=== PATIENT | male | born 1960 | race Caucasian/White ===

== ENCOUNTER → 2024-05-20 10:51 | Outpatient (REF) | payer MEDICARE, MEDICAID, SELFPAY | LOC: HWRAD 10:51 | PROVIDERS: ATTENDING PHYSICIAN Internal Medicine | DX: E04.1 Nontoxic single thyroid nodule (principal) | CPT/HCPCS: 76536 ==

== ENCOUNTER → 2024-05-30 11:51 | Outpatient (REF) | payer MEDICARE, SELFPAY | LOC: HWRAD 11:51 | PROVIDERS: ATTENDING PHYSICIAN Dentist Oral and Maxillofacial Surgery; FAMILY PHYSICIAN Internal Medicine | DX: K02.63 Dental caries on smooth surface penetrating into pulp (principal) | CPT/HCPCS: 70486 ==

== ENCOUNTER 2025-01-26 09:38 | Emergency (ER) | payer MEDICARE, SELFPAY ==
[2025-01-26 09:47] VITALS: BP 146/99
--- NOTE | 2025-01-26 12:05 | ED.GENMED ---
History of Present Illness
General
Chief Complaint: Skin Problem
Time Seen by Provider: 01/26/25 12:04
History of Present Illness
History of Present Illness:
TIME OF INITIAL ENCOUNTER: 12:05 PM
HPI: The patient comes in from a detention. He has history of autism. There was concern for the possibly of injury or infection at the posterior distal aspect of the left lower extremity. The patient is extremely limited and unreliable
historian. There is no report of fevers.
EXAM:
GENERAL: Appears in no distress, overall appearance consistent with autism
HEENT: Moist oral mucosa
NEUROLOGIC: The patient has evidence of autism, does not reliably follow simple commands
EXTREMITIES: Moves all extremities equally, no tenderness, no edema
SKIN: There is a patch of erythema with questionable hematoma/contusion over the left distal lower extremity, the calf is soft and nonedematous
PYSCHIATRIC: Very limited historian, poor insight and judgment
NUMBER AND COMPLEXITY OF PROBLEMS ADDRESSED AT THE ENCOUNTER
� Chronic conditions affecting care: Autism, developmental delay, high blood pressure, Brugada syndrome, CKD, DI
� Acute Exacerbation and/or Progression of Chronic Illness: This is an acute problem
� Differential Diagnosis includes: Contusion, cellulitis, hematoma
AMOUNT AND/OR COMPLEXITY OF DATA TO BE REVIEWED AND ANALYZED
� I performed an independent evaluation of and my interpretation is:
EKG:
CT:
X-rays:
Laboratory Studies:
Other:
� Review of other/old records: I reviewed records, the patient was admitted here in March 2023 with a febrile illness with sepsis�suspected pulmonary source and was treated for community-acquired pneumonia. The patient was
hypernatremic at that time as well.
� Clinical information was obtained by an independent historian: I spoke to staff from his detention
� Prescriptions/Medications Considered but not given:
� Further testing considered but not performed: Labs none indicated
RISK OF COMPLICATIONS AND/OR MORBIDITY OR MORTALITY OF PATIENT MANAGEMENT
� Social determinants of health affecting care: Resides at a detention
� Discussion with other providers:
� Escalation of care including admission/observation vs risk of discharge considered: I suspect this is more of a contusion/abrasion as opposed to true infection however I cannot say with certainty therefore we will place on
antibiotics. There is no clinical suspicion for DVT.
ANY OTHER UPDATES:
Past History
Past History
ED Past Medical History: HTN, NIDDM, Seizures, Hypothyroidism, Psychiatric (bipolar.) and Other (Ataxia, Explusive disorder, Autism. Dysphasa,)
ED Past Surgical History: Other
Patient has exhibited threatening behavior?: No
PSI?: No
Social History
Tobacco: Non-smoker
Alcohol: None
Drug: None
Personal: Single
Living: assisted living ([facility] home with [facility])
Employment: Not employed
Family History
Family History: Other (Reviewed and non-contributory)
Phy Exam
Physical Exam
Physical Exam:
See HPI
Course
Orders/Labs/Results
Orders:
Orders
01/26/25 12:14
Doxycycline [Vibramycin] 100 mg PO NOW STA
Vital Signs
Initial and Last Documented VS:
Initial Vital Signs
Temp Pulse Resp BP Pulse Ox
36.9 C 95 18 146/99 99
01/26/25 09:47 01/26/25 09:47 01/26/25 09:47 01/26/25 09:47 01/26/25 09:47
Last Documented Vital Signs
Temp Pulse Resp BP Pulse Ox
36.9 C 95 18 146/99 99
01/26/25 09:47 01/26/25 09:47 01/26/25 09:47 01/26/25 09:47 01/26/25 09:47
*Critical Care Note
Total Time (30-74mins, 75-104mins- exclusive of procedures): Not Applicable
ED Attending Note
-
Portions of this chart may have been created with voice recognition software.� Occasional wrong word or��sound alike� substitutions may have occurred due to the inherent limitations of voice recognition software.
Discharge Plan
Departure
Patient Disposition: Home (Routine Discharge)
Date of Disposition: 01/26/25
Time of Disposition: 12:15
Patient with high blood pressure during this ER visit?: Yes
Discharge Problem:
Cellulitis
Instructions: Cellulitis (Skin Infection), Adult (DC)
Prescriptions:
New
doxycycline hyclate 100 mg tablet
100 mg PO BID Qty: 14 0RF
No Action
loperamide 2 MG capsule
2 mg PO UD PRN (Reason: diarrhea)
Patient Comments:
10/02/2019 2 caps after first loose stool and 1 capsule after each loose stool
Rx Instructions:
2 caps after 1 loose bm, then 1 cap after each loose bm
acetaminophen [Pharbetol] 325 mg Tablet
650 mg PO Q4H PRN (Reason: mild pain/fever)
Triple Antibiotic 3.5mg-400 unit- 5,000 unit/gram Ointment
1 applic TOPICAL PRN PRN (Reason: prevent infection)
Rx Instructions:
apply to cuts & abrasions
ammonium lactate 12 % lotion
1 applic TOPICAL DAILY
Rx Instructions:
apply to both feet
polyvinyl alcohol [Artificial Tears (polyvin alc)] 1.4 % Drops
1 drp BOTH EYES Q4H PRN (Reason: dry eyes)
guaifenesin 100 mg/5 mL Liquid
200 mg PO Q4H PRN (Reason: cough)
ziprasidone HCl 20 mg capsule
20 mg PO DAILY
lorazepam 1 mg tablet
1 mg PO QID
lacosamide 200 mg tablet
200 mg PO BID
Sympazan 5 mg film
5 mg PO BID
Referrals:
Brislin,Ar M., DO [Family Provider] -
Activity Restrictions/Additional Instructions:
I suspect that the area of concern is related to striking the leg against something as opposed with definite infection. However it is still possible that he may have an infection therefore I am placing him on antibiotics. He does not have a fever
here. His upper portion of his calf is not swollen therefore I do not think that he has a DVT.
Interventions
Interventions:
*Risk Screen - Suicide Last Done: 01/26/25 09:47
*General Assessment Last Done: 01/26/25 09:47
*Neglect/Abuse Screening Last Done: 01/26/25 09:47
*ED- Fall Risk Assessment Last Done: 01/26/25 12:10
*ED COVID-19 Vaccine History Last Done: 01/26/25 12:10
ED-Skin Assessment Last Done: 01/26/25 12:10
Discharge Date and Time
Print Language: INDONESIAN
[2025-01-26 12:10] VITALS: BMI 23.7
[2025-01-26] MEDS: VIBRAMYCIN 100 MG PO (12:18)
== END 2025-01-26 12:26 | disposition home or self-care (01) ==
LOC: EMR 09:38
PROVIDERS: EMERGENCY PHYSICIAN Emergency Medicine; FAMILY PHYSICIAN Internal Medicine
DX: L03.116 Cellulitis of left lower limb (principal); F84.0 Autistic disorder; I10 Essential (primary) hypertension; E03.9 Hypothyroidism, unspecified; E11.9 Type 2 diabetes mellitus without complications
CPT/HCPCS: 99283

== ENCOUNTER 2025-02-17 18:23 | Emergency (ER) | payer MEDICARE, SELFPAY ==
[2025-02-17 18:26] VITALS: BP 165/95
--- NOTE | 2025-02-17 23:14 | ED.GENMED ---
History of Present Illness
General
Chief Complaint: DVT/Possible Blood Clot
Source: patient, care attendant and longterm (Via telephone)
Exam Limitations: altered mental status
Time Seen by Provider: 02/17/25 22:42
Nursing documentation reviewed up to this point in time: agreed with
History of Present Illness
History of Present Illness:
64-year-old male presents to the emergency department with left leg swelling. Sent in to rule out a DVT. Patient is a resident of [facility]. He is accompanied by a caregiver. Patient has autism, developmental delays and dysphagia. He
originally had some redness in the left lower medial calf. He was started on antibiotics. Redness went down briefly, there is some minor swelling which is focal in nature. Ultrasound was negative for DVT here. Patient has severe autism. History
is limited to only what the caregiver and the charge nurse via telephone can provide.
Past History
Past History
ED Past Medical History: HTN, NIDDM, Seizures, Hypothyroidism, Psychiatric (bipolar.) and Other (Ataxia, Explusive disorder, Autism. Dysphasa,)
ED Past Surgical History: Other
Patient has exhibited threatening behavior?: No
PSI?: No
Social History
Tobacco: Non-smoker
Alcohol: None
Drug: None
Personal: Single
Living: assisted living ([facility] home with [facility])
Employment: Not employed
Family History
Family History: Other (Reviewed and non-contributory)
Review of Systems
Review of Systems
Allergies reviewed?: Yes
Unable to obtain full review of systems at this time due to: non-verbal
All Other Systems: ROS reviewed and negative except as documented in HPI and ROS
Skin: Reports other (bruise l medial thigh)
Phy Exam
General Physical Exam
General Presentation: no apparent distress
General age: appears older than age
General Skin: warm and dry
General Mental: usual mental status
General Hydration: appears well hydrated
Pulmonary Exam
Pulmonary Exam: lungs clear and no respiratory distress
Musculoskeletal Exam
Musculoskeletal Exam: full ROM, no edema and neuro vasc intact
Skin Exam
Skin Exam: normal color and warm/dry
Psychiatric Exam
Psychiatric Exam: labile
Course
Orders/Labs/Results
Orders:
Orders
02/17/25 18:29
US Periph Venous LOWER Ext LT Urgent
Comment:
Reason For Exam: swelling
02/17/25 23:14
Leg Tibia/Fibula, Left 2 View [CR Leg Tibia/fibula Left 2 Vw] Urgent
Comment:
Reason For Exam: bruise
Vital Signs
Initial and Last Documented VS:
Initial Vital Signs
Temp Pulse Resp BP Pulse Ox
97.7 F 100 17 165/95 99
02/17/25 18:26 02/17/25 18:26 02/17/25 18:26 02/17/25 18:26 02/17/25 18:26
Last Documented Vital Signs
Temp Pulse Resp BP Pulse Ox
97.7 F 100 17 165/95 99
02/17/25 18:26 02/17/25 18:26 02/17/25 18:26 02/17/25 18:26 02/17/25 18:26
*Radiology
Radiology exam reviewed: radiology read reviewed (Ultrasound negative for DVT positive for hematoma), all reviewed NAD by ED Provider and other
*Critical Care Note
Total Time (30-74mins, 75-104mins- exclusive of procedures): Not Applicable
ED Attending Note
-
Portions of this chart may have been created with voice recognition software.� Occasional wrong word or��sound alike� substitutions may have occurred due to the inherent limitations of voice recognition software.
Discharge Plan
Departure
Patient Disposition: Home (Routine Discharge)
Date of Disposition: 02/17/25
Time of Disposition: 23:18
Patient with high blood pressure during this ER visit?: Yes
Discharge Problem:
Hematoma
Instructions: BLOOD PRESSURE, Hematoma
Prescriptions:
No Action
loperamide 2 MG capsule
2 mg PO UD PRN (Reason: diarrhea)
Patient Comments:
10/02/2019 2 caps after first loose stool and 1 capsule after each loose stool
Rx Instructions:
2 caps after 1 loose bm, then 1 cap after each loose bm
acetaminophen [Pharbetol] 325 mg Tablet
650 mg PO Q4H PRN (Reason: mild pain/fever)
Triple Antibiotic 3.5mg-400 unit- 5,000 unit/gram Ointment
1 applic TOPICAL PRN PRN (Reason: prevent infection)
Rx Instructions:
apply to cuts & abrasions
ammonium lactate 12 % lotion
1 applic TOPICAL DAILY
Rx Instructions:
apply to both feet
polyvinyl alcohol [Artificial Tears (polyvin alc)] 1.4 % Drops
1 drp BOTH EYES Q4H PRN (Reason: dry eyes)
guaifenesin 100 mg/5 mL Liquid
200 mg PO Q4H PRN (Reason: cough)
ziprasidone HCl 20 mg capsule
20 mg PO DAILY
lorazepam 1 mg tablet
1 mg PO QID
lacosamide 200 mg tablet
200 mg PO BID
Sympazan 5 mg film
5 mg PO BID
doxycycline hyclate 100 mg tablet
100 mg PO BID Qty: 14 0RF
Referrals:
Ar Weir DO [Family Provider] -
Activity Restrictions/Additional Instructions:
Thank You for choosing [facility].
It was a pleasure meeting you and taking part in your care. We hope for your continued healing and wellness.
Please read discharge instructions in their entirety. However, they are for general education and may not describe your exact diagnosis at discharge. Information on your ER visit and medical conditions were discussed with you along with appropriate
follow up information...
If indicated, please take your medications as instructed and indicated on discharge paperwork.
Please schedule a follow up appointment as directed. Call to schedule an appointment
Please return to the emergency department with ANY change in, persisting, or worsening of symptoms. If any of your symptoms do not improve, or persist, or become more severe within 6-12 hours, please return to the emergency department for further
care.
Please return to the emergency department if you develop a headache, neck pain/stiffness, fever greater than 100.4F, chest pain, shortness of breath, persistent nausea, vomiting, slurred speech, difficulty walking, numbness/tingling, weakness, signs
of infection or any other symptoms that are worrisome to you.
If you have any questions or concerns please do not hesitate to call the Hospital at or E-mail me directly at [email or web address]
Interventions
Interventions:
*Risk Screen - Suicide Last Done: 02/17/25 18:28
*General Assessment Last Done: 02/17/25 18:28
*Neglect/Abuse Screening Last Done: 02/17/25 18:28
*ED COVID-19 Vaccine History Last Done: 02/17/25 18:28
Discharge Date and Time
Print Language: YORUBA
[2025-02-18 00:07] VITALS: BP 134/98
== END 2025-02-18 00:11 | disposition home or self-care (01) ==
LOC: EMR 18:23
PROVIDERS: EMERGENCY PHYSICIAN Student in an Organized Health Care Education/Training Program; FAMILY PHYSICIAN Internal Medicine
DX: M79.81 Nontraumatic hematoma of soft tissue (principal); F84.0 Autistic disorder
CPT/HCPCS: 99285; 73590; 93971

== ENCOUNTER 2025-03-31 01:46 | Inpatient (IN) | payer MEDICARE, MEDICAID, SELFPAY ==
[2025-03-30 18:45] VITALS: BP 121/94
[2025-03-30 20:24] VITALS: BP 116/91
[2025-03-30 20:25] VITALS: BMI 24.7
[2025-03-30 21:00] VITALS: BP 126/97
[2025-03-30 21:55] LABS: Hematocrit 47.0 % (39.0-52.0); Hemoglobin 15.4 g/dL (13.0-18.0); Mean Corp Hgb Conc. 32.8 g/dL (33.0-37.0); Mean Corpuscular Volume 89.4 fL (80.0-94.0); Nucleated Red Blood Cells % 0 % (-); Platelet Count 207 10^3/uL (130-400); Red Cell Dist. Width 15.1 % (11.5-14.5)
[2025-03-30 22:00] VITALS: BP 126/94
[2025-03-30 22:47] LABS: ALT (SGPT) 50 U/L (0-50); AST (SGOT) 32 U/L (17-59); Albumin 4.2 g/dl (3.5-5.0); Alkaline Phosphatase 82 U/L (38-126); Blood Urea Nitrogen 49 mg/dl (9-20); Calcium 10.2 mg/dl (8.4-10.2); Carbon Dioxide 26 mmol/L (22-30); Chloride 124 mmol/L (98-107); Estimated Creatinine Clearance 34 ml/min; Glucose 122 mg/dl (70-99); Potassium 4.4 mmol/L (3.5-5.1); Sodium 159 mmol/L (135-145); Total Protein 7.3 g/dl (6.3-8.2); eGFR 28.34
[2025-03-30] MEDS: NSS 1000 IV (23:44)
--- NOTE | 2025-03-31 00:14 | ED.GENMED ---
History of Present Illness
General
Chief Complaint: Weakness
Time Seen by Provider: 03/30/25 23:02
History of Present Illness
History of Present Illness:
64-year-old male with history of bipolar disorder, anxiety, conversion disorder, seizures, diabetes insipidus presenting from nursing home for concern for dehydration and high sodium. Patient is on a thickened liquid and soft/chopped diet. Staff
notes as of recent, patient has been more lethargic and fatigued. Today when they tried to stand him up to go to the bathroom, had difficultly bearing weight on his legs. He usually urinates every 30 minutes to an hour, however has not urinated
for the past several hours. He had previously been on a feeding tube and hospice, however ultimately condition improved after feeding tube removed and he resumed normal diet. They note history of aspiration. Patient limit historian given his
chronic medical conditions. Staff note slurred speech at baseline. Per staff, recent laboratory analysis in 03/19 which showed a sodium of 149
Past History
Past History
ED Past Medical History: HTN, NIDDM, Seizures, Hypothyroidism, Psychiatric (bipolar.) and Other (Ataxia, Explusive disorder, Autism. Dysphasa,)
ED Past Surgical History: Other
Patient has exhibited threatening behavior?: No
PSI?: No
Social History
Tobacco: Non-smoker
Alcohol: None
Drug: None
Personal: Single
Living: assisted living ([facility] home with [facility])
Employment: Not employed
Family History
Family History: Other (Reviewed and non-contributory)
Phy Exam
Physical Exam
Physical Exam:
General: No acute distress, mild dryness to mucous membranes
HEENT: protecting airway
Neck: appears supple
CV: Normal heart rate, regular rhythm
Resp: No accessory muscle use, no increased work of breathing, lungs clear to auscultation bilaterally
Abd: Soft and non-distended, no tenderness to palpation
Extremities: No deformities, no swelling
Neuro: alert, no focal neurologic deficit
: deferred
Rectal: deferred
Psych: Normal affect
Skin: Intact
Course
Orders/Labs/Results
Orders:
Orders
03/30/25 21:38
Complete Blood Count/With Diff Urgent
03/30/25 22:16
Comprehensive Metabolic Panel Urgent
03/30/25 23:39
0.9% Sodium Chloride 1000 ml [Nss] 1,000 ml IV BOLUS
03/31/25 00:03
CR Chest - 2 Views Urgent
Reason For Exam: elevated WBC, hx of aspiration
Abnormal Lab Results
03/30/25 03/30/25
21:38 22:16
WBC 14.3 H 10^3/uL
(4.8-10.8)
MCHC 32.8 L g/dL
(33.0-37.0)
RDW 15.1 H %
(11.5-14.5)
MPV 11.8 H fL
(7.4-10.4)
Abs Immat Gran (auto) 0.1 H 10^3/uL
(0-0.05)
Absolute Neuts (auto) 11.1 H 10^3/uL
(1.4-6.5)
Absolute Monos (auto) 0.8 H 10^3/uL
(0.1-0.6)
Neutrophils % 77.9 H %
(42.2-75.2)
Lymphocytes % 14.7 L %
(20.5-51.1)
Sodium 159 H mmol/L
(135-145)
Chloride 124 H mmol/L
(98-107)
BUN 49 H mg/dl
(9-20)
Creatinine 2.5 H mg/dL
(0.7-1.3)
Glucose 122 H mg/dl
(70-99)
03/30/25 21:38
03/30/25 22:16
Vital Signs
Initial and Last Documented VS:
Initial Vital Signs
Temp Pulse Resp BP Pulse Ox
97.3 F 104 16 121/94 96
03/30/25 18:45 03/30/25 18:45 03/30/25 18:45 03/30/25 18:45 03/30/25 18:45
Last Documented Vital Signs
Temp Pulse Resp BP Pulse Ox
97.3 F 104 16 126/94 97
03/30/25 18:45 03/30/25 18:45 03/30/25 18:45 03/30/25 22:00 03/30/25 20:25
MDM/Problems Addressed
MDM/Problems Addressed:
64-year-old male with history of bipolar disorder, anxiety, conversion disorder, seizures, diabetes insipidus presenting for concern of weakness and dehydration.
On examination, patient in no acute distress. Patient with gargled/slurred speech, difficult to understand, however staff does note that this is typical for him. They do note that it is slightly more pronounced, with increasing lethargy. Given
history of diabetes insipidus, concern for electrolyte derangement particularly with patient's sodium, and preceding abnormal labs from nursing facility. No focal neurologic deficits presently without concern for central neurologic process. Will
repeat laboratory analysis.
00:10 -Labs show sodium of 157, increased from outpatient labs of 149. Concern for dehydration. Staff notes the patient has not been urinating as frequently. Patient also with EM, consistent with dehydration. Will start IV fluids. Patient also
with leukocytosis. Currently afebrile. No tenderness to abdomen. History of aspiration pneumonias in the past, will obtain chest x-ray imaging. Ultimate plan for admission for hyponatremia and EM
*Pulse Oximetry
SaO2: 97
Oxygen Mode of Delivery: Room air
Patient hypoxic: no
*Critical Care Note
Total Time (30-74mins, 75-104mins- exclusive of procedures): Not Applicable
ED Attending Note
-
Portions of this chart may have been created with voice recognition software.� Occasional wrong word or��sound alike� substitutions may have occurred due to the inherent limitations of voice recognition software.
Discharge Plan
Departure
Prescriptions:
No Action
loperamide 2 MG capsule
2 mg PO UD MDD 16 mg PRN (Reason: diarrhea)
Rx Instructions:
2 caps after 1 loose bm, then 1 cap after each loose bm
ammonium lactate 12 % lotion
1 applic TOPICAL DAILY
guaifenesin 100 mg/5 mL Liquid
200 mg PO Q4H MDD 40 ml PRN (Reason: cough)
ziprasidone HCl 20 mg capsule
20 mg PO DAILY
lorazepam 1 mg tablet
1 mg PO QID
lacosamide 200 mg tablet
200 mg PO BID
Sympazan 5 mg film
5 mg PO BID
hydralazine 10 mg Tablet
10 mg PO DAILYPRN PRN (Reason: SBP>160)
acetaminophen 325 mg Tablet
650 mg PO Q4H PRN (Reason: mild pain/fever)
Triple Antibiotic 3.5mg-400 unit- 5,000 unit/gram Ointment
1 applic TOPICAL DIRECTED PRN (Reason: infection prevention)
Rx Instructions:
apply topically to cuts and abrasions as needed to prevent infection.
amlodipine 5 mg Tablet
5 mg PO DAILY
magnesium hydroxide [Milk of Magnesia] 400 mg/5 mL Suspension
30 ml PO DAILYPRN PRN (Reason: constipation)
ziprasidone HCl 40 mg Capsule
40 mg PO QPM
diazepam 10 mg Tablet
10 mg PO DIRECTED
diazepam 10 mg Tablet
10 mg PO DIRECTED
Sunblock Moisturizing Spf-30 Lotion
1 ea TOPICAL DIRECTED PRN (Reason: sun exposure)
Rx Instructions:
apply to all exposed skin as needed prior to sun exposure for sun protection.
Artificial Tears(pvalch-povid) 0.5-0.6 % Drops
1 drp BOTH EYES Q4HPRN PRN (Reason: dry eye)
cholecalciferol (vitamin D3) 50 mcg (2,000 unit) Tablet
50 mcg PO DAILY
zinc oxide [Diaper Rash] 40 % Ointment
1 applic TOPICAL Q2H
Listerine Antiseptic Mouthwash
1 ea MUCOUS MEMBRANE DAILY
Nayzilam 5 mg/spray (0.1 mL) [place],Non-Aerosol
1 spray INTRANASAL DIRECTED PRN (Reason: breakthrough seizure)
Rx Instructions:
administer 1 spray into one nostril as needed for breakthrough seizure; can repeat after 10 min in opposite nostril if seizure continues.
Referrals:
Ar Weir DO [Family Provider, Internal Medicine]
Interventions
Interventions:
*Risk Screen - Suicide Last Done: 03/30/25 18:49
*General Assessment Last Done: 03/30/25 20:25
*Neglect/Abuse Screening Last Done: 03/30/25 18:49
*ED- Fall Risk Assessment Last Done: 03/30/25 20:25
*ED COVID-19 Vaccine History Last Done: 03/30/25 20:25
ED- Cardiac Assessment Last Done: 03/30/25 20:25
ED- Neurological Assessment Last Done: 03/30/25 20:25
ED- Pulmonary Assessment Last Done: 03/30/25 20:25
Discharge Date and Time
Print Language: POLISH
--- NOTE | 2025-03-31 01:32 | HPS.HSE ---
Family Physician
-
Family Physician: Ar Weir
Chief Complaint
-
Weakness, Lethargy, Abnormal Labs
History of Present Illness
Patient is a 64y M with PMH significant for chronic aphasia, bipolar disorder, seizure disorder and CKD who presents to ED from private care facility for evaluation of lethargy, weakness and abnormal labs. History obtained from ED staff /
records. Patient unable to contribute to history. Caregiver currently present at the bedside has no specific details to offer. Patient reportedly with increased lethargy over the past few days. Today he was unable to stand even with assistance -
which is unusual for him. Labs were done on 03/19 which included Na level of 149. Staff notes that he has not been urinating as much as usual.
Patient was sent to the ED for further evaluation.
At the time of my exam, patient is restless and agitated. He is not at all lethargic.
As noted, he is unable to contribute meaningfully to this history.
Medical History
Past Medical History
Past Medical History: Reports Other
Additional Past Medical History:
Autism
Bipolar Disorder
Seizure Disorder
Hypertension
Chronic Dysphagia / Recurrent Aspiration
Bilateral Renal Masses
Past Surgical History: Reports Other
Additional Past Surgical History:
Prior PEG Placement / Removal
Social History
Unable to obtain full social history at this time due to: Dementia
Family History
Family History: Unable to Obtain
Allergies / Home Medications
Allergies reflects when Allergies were last updated in [employer].
Home Medications with original date entered in [employer]
Allergy/Medication List:
Allergies
Allergy/AdvReac Type Severity Reaction Status Date / Time
Barbiturates Allergy Unknown Verified 01/26/25 09:47
phenobarbital Allergy Unknown Verified 01/26/25 09:47
phenytoin Allergy Unknown Verified 01/26/25 09:47
loop diuretics Allergy Unknown Uncoded 10/02/19 14:46
Home Medications
loperamide 2 mg capsule 2 mg PO UD PRN diarrhea 04/30/19
ammonium lactate 12 % lotion 1 applic topical DAILY apply to both feet 03/03/23
clobazam 5 mg oral film (Sympazan) 5 mg PO BID Seizures 03/03/23
guaifenesin 100 mg/5 mL oral liquid 200 mg PO Q4H PRN cough 03/03/23
lacosamide 200 mg tablet 200 mg PO BID Seizures 03/03/23
lorazepam 1 mg tablet 1 mg PO QID Mental Health/Anxiety 03/03/23
ziprasidone HCl 20 mg capsule 20 mg PO DAILY Mental Health/Anxiety 03/03/23
acetaminophen 325 mg tablet 650 mg PO Q4H PRN mild pain/fever 03/30/25
amlodipine 5 mg tablet 5 mg PO DAILY 03/30/25
cholecalciferol (vitamin D3) 50 mcg (2,000 unit) tablet 50 mcg PO DAILY 03/30/25
diazepam 10 mg tablet 10 mg PO DIRECTED 1 hr prior to MRI 03/30/25
diazepam 10 mg tablet 10 mg PO DIRECTED 1 hr prior to dental appt 03/30/25
eucalyptol-methyl rvckqdakbk-ebhuqgd-kwwnrr mouthwash 1 ea mucous membrane DAILY 03/30/25
hydralazine 10 mg tablet 10 mg PO DAILYPRN PRN SBP>160 03/30/25
magnesium hydroxide 400 mg/5 mL oral suspension (Milk of Magnesia) 30 ml PO DAILYPRN PRN constipation 03/30/25
midazolam 5 mg/spray (0.1 mL) nasal spray (Nayzilam) 1 spray intranasal DIRECTED PRN breakthrough seizure 03/30/25
neomycin-bacitracn Zn-polymyx 3.5 mg-400 unit-5,000 unit/gram top oint (Triple Antibiotic) 1 applic topical DIRECTED PRN infection prevention 03/30/25
polyvinyl alcohol-povidone 0.5 %-0.6 % eye drops (Artificial Tears (polyvinyl alcohol/povidone)) 1 drp BOTH EYES Q4HPRN PRN dry eye 03/30/25
sunscreen lotion 1 ea topical DIRECTED PRN sun exposure 03/30/25
zinc oxide 40 % topical ointment (Diaper Rash) 1 applic topical Q2H apply to groin/zen area 03/30/25
ziprasidone HCl 40 mg capsule 40 mg PO QPM 03/30/25
Review of Systems
-
Unable to obtain full review of systems at this time due to: Dementia
Physical Exam
Vital Signs
Vital Signs
Temp Pulse Resp BP Pulse Ox
97.3 F 96 16 126/94 97
03/30/25 18:45 03/31/25 00:10 03/30/25 18:45 03/30/25 22:00 03/31/25 00:18
Physical Exam
General: Other (Restless / agitated 64y M. Follows commands / cooperates with exam when redirected.)
HEENT: Other (Dry MM. Poor dentition. Neck supple.)
Respiratory: Clear; No Wheezes, Rales or Rhonchi
Cardiac: S1/S2 and Regular Rhythm; No Murmur
GI: Soft, Non Tender, Non Distended and Normal Bowel Sounds
Musculoskeletal: No Clubbing, No Cyanosis and No Edema
Neuro: Other (Moves all extremities without difficulty. Some dysarthric speech - but minimal. Does not answer questions.)
Laboratory Results
-
03/30/25 21:38
03/30/25 22:16
Laboratory Results
Total Bilirubin 0.5 mg/dl (0.2-1.3) 03/30/25 22:16
AST 32 U/L (17-59) 03/30/25 22:16
ALT 50 U/L (0-50) 03/30/25 22:16
Alkaline Phosphatase 82 U/L (38-126) 03/30/25 22:16
Impression/Plan
-
A/P: Patient is a 64y M with PMH significant for seizure disorder, autism / bipolar and chronic dysphagia who presents to ED for evaluation of lethargy, weakness and abnormal labs.
EM on CKD III
Dehydration
- Admit for further evaluation and treatment.
- Na level today is 159. Prior levels typically in the upper 140s.
- Dry MM and chronic history of dysphagia / difficulty with PO intake.
- SCr = 2.5 compared to prior baseline of 1.6
- IVFs with 1/2 NS for now and follow for improvement in labs / lytes.
- Bladder scan protocol to rule out retention (though less likely).
- Some note of DI in today's notes, but I do not see any historical record of this diagnosis and recent history of decreased urine output, etc would argue against this.
Seizure Disorder
- Stable. Continue usual antiepileptic med regimen.
- Patient also on standing Ativan - likely for mood - continue without changes.
- Follow BMP / Na levels closely to avoid rapid alterations. Adjust IVFs as needed.
Bipolar Disorder
Autism / Cognitive Impairment
- Restless and agitated in the ED.
- Continue usual outpatient med regimen for mood stability.
- Haldol PRN for increased agitation.
Chronic Dysphagia
- Prior aspiration events. Was PEG-dependent for a time, but repeatedly removed tube so this was discontinued.
- Continue thickened liquids for now.
- Speech evaluation for appropriate diet.
Benign Hypertension
- BP is stable. Will hold amlodipine for now.
Renal Masses
- Bilateral renal masses noted on prior imaging.
- Patient is currently on Palliative Care at [facility] care facility.
- Aggressive intervention not desired.
- Followed by Urology as an outpatient.
DVT Prophylaxis: Subcut heparin
Code Status: DNR
[2025-03-31] MEDS: FLUSH (NSS) 1 FLUSH IV (01:37)
[2025-03-31] MEDS: ATIVAN 1 MG PO ×5 (01:37→21:26)
[2025-03-31 02:43] VITALS: BP 148/104; BMI 23.8
[2025-03-31] MEDS: 0.45%NACL 1000 IV (03:03)
--- NOTE | 2025-03-31 04:57 | PTCARENOTE ---
patient arrived in the unit alert (oriented to self). Pt transferred from stretcher to bed. Patient stable, vitals normal. Pt oriented to room, call hurst placed next to patient. Bed alarm in place
[2025-03-31 06:00] VITALS: BMI 23.8
[2025-03-31 08:00] LABS: Hematocrit 42.8 % (39.0-52.0); Hemoglobin 13.8 g/dL (13.0-18.0); Mean Corp Hgb Conc. 32.2 g/dL (33.0-37.0); Mean Corpuscular Volume 89.7 fL (80.0-94.0); Platelet Count 175 10^3/uL (130-400); Red Cell Dist. Width 14.4 % (11.5-14.5)
[2025-03-31 08:23] VITALS: BP 152/99
[2025-03-31 08:25] LABS: Blood Urea Nitrogen 41 mg/dl (9-20); Calcium 9.3 mg/dl (8.4-10.2); Carbon Dioxide 25 mmol/L (22-30); Chloride 129 mmol/L (98-107); Estimated Creatinine Clearance 38 ml/min; Glucose 90 mg/dl (70-99); Potassium 4.3 mmol/L (3.5-5.1); Sodium 161 mmol/L (135-145); eGFR 33.04
[2025-03-31] MEDS: VIMPAT 200 MG PO ×2 (08:52→21:26)
[2025-03-31] MEDS: HEPARIN 5000 UNITS SC ×2 (08:52→21:26)
[2025-03-31] MEDS: GEODON 20 MG PO (09:02)
[2025-03-31] MEDS: D5W 1000 IV ×2 (09:08→20:11)
--- NOTE | 2025-03-31 10:15 | PTOTSP ---
Addendum entered and electronically signed by ST Mattie 03/31/25 10:23:
4. Oral care 3x daily
Original Note:
Dysphagia Evaluation
Suspect acute on chronic dysphagia (i.e., current lethargy/weakness; chronic dysphagia with recurrent aspiration, history of Autism, Bipolar, seizure disorder, cognitive impairment). Patient with overt coughing with moderately thick liquids via
cup/straw. Cannot r/o silent aspiration with tsp amounts of moderately thick liquids and puree. WBC elevated, CXR with mild R>L scarring.
Video swallow study 03/05/2023 with severe oral/pharyngeal dysphagia and silent aspiration of many consistencies. 03/06/2023 brother opted for regular, thin liquids for comfort/quality of life.
At this time consider repeat video swallow study to determine if patient appropriate for oral PO in any form and to rule out silent aspiration - only if aligned with medical decision maker's goals of care.
Recommend:
1. Temporary NPO
2. Medications: crushed in puree if medically cleared to do so
3. Repeat video swallow study pending goals of care discussions
--- NOTE | 2025-03-31 11:12 | W.PN.UPDATE ---
Update Note
Progress Note Update
Non-billable addendum
Admitted 130 AM
hungry, requesting to eat
Assessment:
EM on CKD III
Dehydration
- Na level today is 159. Prior levels typically in the upper 140s.
- Dry MM and chronic history of dysphagia / difficulty with PO intake.
- SCr = 2.5 compared to prior baseline of 1.6
- FWD is 3L - start D5W and monitor serial labs
- Bladder scan protocol to rule out retention (though less likely).
- Some note of DI in prior notes, but no historical record of this diagnosis and recent history of decreased urine output, etc would argue against this.
Seizure Disorder
- Stable. Continue usual antiepileptic med regimen.
- Patient also on standing Ativan - likely for mood - continue without changes.
- Follow BMP / Na levels closely to avoid rapid alterations. Adjust IVFs as needed.
Bipolar Disorder
Autism / Cognitive Impairment
- Restless and agitated at times
- Continue usual outpatient med regimen for mood stability.
- Haldol PRN for increased agitation.
- 1:1
Chronic Dysphagia
- Prior aspiration events. Was PEG-dependent for a time, but repeatedly removed tube so this was discontinued.
- Speech evaluation for appropriate diet recommended NPO and goals of care
Benign Hypertension
- BP is stable. Will hold amlodipine for now.
Renal Masses
- Bilateral renal masses noted on prior imaging.
- Patient is currently on Palliative Care at personal care facility.
- Aggressive intervention not desired.
- Followed by Urology as an outpatient.
Dispo: from a [facility] nursing home. Case d/w brother Ruslan. Expressed concern for now lung scarring from likely repetitive aspiration. Also more recent issues with oral intake, limited water intake. Recommended hospice and brother agreeable.
DVT Prophylaxis: SC heparin
Code Status: DNR
[2025-03-31 11:41] VITALS: BP 152/93
--- NOTE | 2025-03-31 12:50 | CM ---
park manager reviewed patient's chart and met with patient and patient lives at [facility], per Paige Carreon DON at [facility] patient is able to stand and pivot to w/c, patient watches [employer] in the morning and then goes to work, per [facility] team
this is patient's routine everyday. Patient has assist with adl's. park manager received a consult for hospice, case consultant reached out to patient's brother, Ruslan and he is now declining hospice, per Paige Carreon they are aware of patient needs
and feel they will be able to manage patient when he returns.
Plan:Patient to return to [facility] when stable.
[facility]
Report [phone]
--- NOTE | 2025-03-31 13:30 | PTOTSP ---
Speech Language Pathology
VIDEOFLUOROSCOPIC SWALLOWING EXAMINATION (VSE) completed. Pt impulsive with rate of intake. Frequent movement noted during study. Pt with mild oral and severe pharyngeal dysphagia. Swallow function has worsened significantly since last VSE
completed 03/05/23. Aspiration of all consistencies noted with brief throat clear/cough response, which was ineffective at clearing aspiration. With puree, at least 50% of bolus noted to aspirate on subsequent swallow. Regular solids deferred given
concern for airway obstruction. Pt is at an extremely high risk for airway obstruction/choking and aspiration/aspiration related consequences.
Recommend:
(1) NPO and continued GOC discussion
(2) If brother chooses to allow pt to eat/drink despite risks, would consider IDDSI Level 4 (puree) and thin liquids, given aspiration of thickened liquids as well as thin liquids
(3) Aspiration precautions for comfort feeds: single sips, slow rate, full supervision, encourage coughing with P.O. to attempt to clear aspiration
(4) Meds as tolerated
(5) [employer] CARRIER ASSISTANT to follow, likely briefly, as pt unable to actively participate in dysphagia tx
[2025-03-31 13:34] LABS: Blood Urea Nitrogen 36 mg/dl (9-20); Calcium 9.2 mg/dl (8.4-10.2); Carbon Dioxide 23 mmol/L (22-30); Chloride 127 mmol/L (98-107); Estimated Creatinine Clearance 37 ml/min; Glucose 107 mg/dl (70-99); Potassium 4.0 mmol/L (3.5-5.1); Sodium 157 mmol/L (135-145); eGFR 31.32
--- NOTE | 2025-03-31 13:49 | W.PN.UPDATE ---
Update Note
Progress Note Update
high degree of aspiration noted on VSE; formal report to follow
continue comfort feeds at family request; patient is a DNR
informed by CM that brother Ruslan is at this time not agreeable to hospice
[2025-03-31 16:12] VITALS: BP 147/110
[2025-03-31] MEDS: GEODON 40 MG PO (17:29)
[2025-03-31 18:09] LABS: Blood Urea Nitrogen 37 mg/dl (9-20); Calcium 9.9 mg/dl (8.4-10.2); Carbon Dioxide 21 mmol/L (22-30); Chloride 129 mmol/L (98-107); Estimated Creatinine Clearance 40 ml/min; Glucose 117 mg/dl (70-99); Potassium 4.2 mmol/L (3.5-5.1); Sodium 157 mmol/L (135-145); eGFR 34.93
[2025-03-31 21:36] LABS: Urine Character Clear (Clear)
[2025-03-31 21:45] LABS: Urine Red Blood Cell 0-2 /HPF (0-2); Urine White Cell 80-90 /HPF (0-5)
[2025-03-31 23:09] VITALS: BP 114/79
[2025-03-31 23:26] LABS: Blood Urea Nitrogen 36 mg/dl (9-20); Calcium 9.6 mg/dl (8.4-10.2); Carbon Dioxide 27 mmol/L (22-30); Chloride 125 mmol/L (98-107); Estimated Creatinine Clearance 40 ml/min; Glucose 114 mg/dl (70-99); Potassium 4.1 mmol/L (3.5-5.1); Sodium 154 mmol/L (135-145); eGFR 34.93
[2025-04-01] MEDS: D5W 1000 IV ×2 (06:37→16:22)
[2025-04-01 07:00] VITALS: BP 150/92
[2025-04-01] MEDS: VIMPAT 200 MG PO ×2 (07:30→19:47)
[2025-04-01] MEDS: GEODON 20 MG PO (07:30)
[2025-04-01] MEDS: ATIVAN 1 MG PO ×4 (07:30→20:52)
[2025-04-01] MEDS: HEPARIN 5000 UNITS SC ×2 (07:31→19:47)
--- NOTE | 2025-04-01 08:40 | PTOTSP ---
Speech Language Pathology
Pt seen for dysphagia tx with breakfast tray. 1:1 present. Briefly discussed aspiration noted on VSE, which pt was not able to comprehend. Liquids being given by pouring from larger cup into small cup and giving pt cup. However, pt taking
consecutive sips this way. Trialed liquids via straw with LCPC pinching for single sips only to limit volume. Consistent wet coughing noted, which is expected given known aspiration. However, pinching straw did minimize volume pt was able to take.
Inconsistent cough noted with puree, but suspect consistent aspiration based on VSE.
Strategies have been identified to attempt to decrease risk and pt is unable to actively participate in therapy, so further LCPC services not indicated in this level of care. Pt will remain at a high risk for aspiration and aspiration related
consequences, but brother has chosen to allow pt to eat/drink despite risks. Liquids has been changed to thin liquids as pt with aspiration of all liquids and safer to avoid having thickener in lungs with thin liquids easier to eject.
Recommend:
(1) Comfort feeding of IDDSI Level 4 (Puree) and Thin liquids
(2) Aspiration precautions: full supervision, slow rate, small bites, single sips (pinch straw), ask pt to cough intermittently throughout meal
(3) Meds crushed in puree
(4) Consider Provale cup or Bionix safe straw in chcf to limit volume pt able to drink at one time
(5) LCPC to sign off. Please reconsult as indicated
[2025-04-01 09:25] LABS: Hematocrit 46.9 % (39.0-52.0); Hemoglobin 14.8 g/dL (13.0-18.0); Mean Corp Hgb Conc. 31.6 g/dL (33.0-37.0); Mean Corpuscular Volume 91.2 fL (80.0-94.0); Platelet Count 179 10^3/uL (130-400); Red Cell Dist. Width 14.3 % (11.5-14.5)
[2025-04-01 09:49] LABS: Blood Urea Nitrogen 31 mg/dl (9-20); Calcium 9.7 mg/dl (8.4-10.2); Carbon Dioxide 24 mmol/L (22-30); Chloride 122 mmol/L (98-107); Estimated Creatinine Clearance 38 ml/min; Glucose 84 mg/dl (70-99); Potassium 4.1 mmol/L (3.5-5.1); Sodium 155 mmol/L (135-145); eGFR 33.04
--- NOTE | 2025-04-01 12:24 | W.PN.HOSP.TC ---
Today's Communication/Plan
-
continue IVF to replace free water
monitor labs
Assessment / Plan
Assessment / Plan
Assessment:
EM on CKD III
Dehydration
- Na level today is 155. Prior levels typically in the upper 140s.
- Dry MM and chronic history of dysphagia / difficulty with PO intake.
- SCr = 2.5 compared to prior baseline of 1.6
- FWD is 3L - continue D5W and monitor serial labs
- Bladder scan protocol to rule out retention (though less likely).
- Some note of DI in prior notes, but no historical record of this diagnosis and recent history of decreased urine output, etc would argue against this.
Seizure Disorder
- Stable. Continue usual antiepileptic med regimen.
- Patient also on standing Ativan - likely for mood - continue without changes.
- Follow BMP / Na levels closely to avoid rapid alterations. Adjust IVFs as needed.
Bipolar Disorder
Autism / Cognitive Impairment
- Restless and agitated at times
- Continue usual outpatient med regimen for mood stability.
- Haldol PRN for increased agitation.
- 1:1
Chronic Dysphagia
- Prior aspiration events. Was PEG-dependent for a time, but repeatedly removed tube so this was discontinued.
- Speech evaluation for appropriate diet recommended NPO. VSE with high grade aspiration ~50% of bolus aspiration of all levels
- initially family agreed to hospice but now not interested in hospice.
Benign Hypertension
- Continue amlodipine 5mg
Renal Masses
- Bilateral renal masses noted on prior imaging.
- Patient is currently on Palliative Care at personal care facility.
- Aggressive intervention not desired.
- Followed by Urology as an outpatient.
Dispo: from a [facility] home. Case d/w brother Ruslan. Expressed concern for now lung scarring from likely repetitive aspiration. Also more recent issues with oral intake, limited water intake. Recommended hospice; initially he agreed to hospice
but now not interested in hospice.
DVT Prophylaxis: SC heparin
Code Status: DNR
Anticipated Discharge: 24 - 48 hours
Subjective/Interval History
-
Date of Service: April 01, 2025
no overnight events
Na is 155
Objective Data
-
Labs:
Laboratory Results
04/01/25
08:51
WBC 7.1
Hgb 14.8
Hct 46.9
Plt Count 179
Sodium 155 H
Potassium 4.1
Chloride 122 H
Carbon Dioxide 24
BUN 31 H
Creatinine 2.2 H
Glucose 84
Calcium 9.7
Vital Signs:
Vital Signs
Temp Pulse Resp BP Pulse Ox
97.7 F 58 18 150/92 97
04/01/25 07:00 04/01/25 07:00 04/01/25 07:00 04/01/25 07:00 04/01/25 07:00
I&O
03/31/25 04/01/25 04/02/25
06:59 06:59 06:59
Intake Total 0 / 0 0 / 0
Output Total 1500 / 1500
Balance 0 / 0 -1500 / -1500 0 / 0
Physical Exam
-
General: No Apparent Distress
HEENT: Normocephalic and Atraumatic
Respiratory: Crackles (faint); Negative Wheezes
Cardiac: Regular Rhythm
GI: Soft
Genito-urinary: No Costovertebral Tender
Neuro: AO x 3
Psych: Calm
Data Reviewed
-
Total Time Spent with Patient (in minutes): 42
Labs: Labs Reviewed by me
--- NOTE | 2025-04-01 12:38 | VATNOTE ---
R FA PIV infiltrated, + phlebitis. Edema at site & red streak formation noted up right arm, as well as palpable venous cord. IV removed. Extremity elevated. New PIV placed in L FA.
--- NOTE | 2025-04-01 14:01 | PN.CDI ---
CDI
- -
CDI:
Physician Documentation Request
Admit Date: 03/31/25 01:46
Dear Doctor Ophelia,
Please review the following and provide your response in the progress notes.
Clinical Indicators:
PN, 04/01
#continue IVF to replace free water
#- Na level today is 155. Prior levels typically in the upper 140s.
#- Some note of DI in prior notes, but no historical record of this diagnosis
#...and recent history of decreased urine output, etc would argue against this.
Laboratory Tests
03/30/25 03/31/25 03/31/25
22:16 07:36 12:40
Sodium 159 H 161 H* 157 H
03/31/25 03/31/25 04/01/25
17:33 23:04 08:51
Sodium 157 H 154 H 155 H
Based on the above and your clinical assessment, please clarify in the progress notes, the appropriate diagnosis, if significant, that supports the above abnormalities and additional evaluation, monitoring and/or treatment rendered:
Hypernatremia
Abnormal lab value, clinically insignificant
Other(please specify)
Use of terms such as suspected, likely, concern for, or probable (associated with a specific diagnosis that is being evaluated, monitored, or treated as if it exists) are acceptable and can be coded in the inpatient setting, when documented at the
time of discharge.
Thank you,
Yaquelin Barker RN BSN CCDS
CDI Specialist
Please contact via tiger text
Please use your independent medical judgment in providing your response.
[2025-04-01 14:08] VITALS: BP 129/92; PULSE 88; O2SAT 94
--- NOTE | 2025-04-01 14:12 | CM ---
Per physician patient is for possible discharge tomorrow, pillowcase cleaner spoke with Paige [phone], BABAK at [facility] and she is aware of discharge and they will transport patient back to [facility] tomorrow.
[facility]
Report [phone]
[2025-04-01 15:00] VITALS: BP 144/89
[2025-04-01] MEDS: NORVASC 5 MG PO (17:35)
[2025-04-01] MEDS: GEODON 40 MG PO (17:36)
[2025-04-01 20:49] LABS: Blood Urea Nitrogen 37 mg/dl (9-20); Calcium 9.9 mg/dl (8.4-10.2); Carbon Dioxide 24 mmol/L (22-30); Chloride 121 mmol/L (98-107); Estimated Creatinine Clearance 38 ml/min; Glucose 121 mg/dl (70-99); Potassium 4.2 mmol/L (3.5-5.1); Sodium 153 mmol/L (135-145); eGFR 33.04
[2025-04-01 22:35] VITALS: BP 138/94
[2025-04-02 05:33] VITALS: BMI 24.5
[2025-04-02 07:25] VITALS: BP 163/96
[2025-04-02] MEDS: NORVASC 5 MG PO (08:13)
[2025-04-02] MEDS: ATIVAN 1 MG PO ×4 (08:16→21:42)
[2025-04-02] MEDS: VIMPAT 200 MG PO ×2 (08:17→20:13)
[2025-04-02] MEDS: HEPARIN 5000 UNITS SC ×2 (08:17→20:13)
[2025-04-02] MEDS: GEODON 20 MG PO (08:24)
[2025-04-02 08:30] LABS: Hematocrit 46.9 % (39.0-52.0); Hemoglobin 14.7 g/dL (13.0-18.0); Mean Corp Hgb Conc. 31.3 g/dL (33.0-37.0); Mean Corpuscular Volume 90.0 fL (80.0-94.0); Platelet Count 166 10^3/uL (130-400); Red Cell Dist. Width 14.1 % (11.5-14.5)
--- NOTE | 2025-04-02 08:58 | W.PN.HOSP.TC ---
Today's Communication/Plan
-
reorder D5W
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
Assessment / Plan
Assessment / Plan
Assessment:
EM on CKD III
Dehydration with hypernatremia
- Na level today is 156. Prior levels typically in the upper 140s.
- Dry MM and chronic history of dysphagia / difficulty with PO intake.
- SCr = 2.5 compared to prior baseline of 1.6
- FWD is 3L - patient received D5W without improvement
- further increase D5W rate
- [place] induced diabetes insipidus per history. Will consult Nephrology for evaluation.
Seizure Disorder
- Stable. continue usual antiepileptic med regimen.
- Patient also on standing Ativan - likely for mood - continue without changes.
- Follow BMP/Na levels closely to avoid rapid alterations. Adjust IVFs as needed.
Bipolar Disorder
Autism/Cognitive Impairment
- Restless and agitated at times
- Continue usual outpatient med regimen for mood stability.
- Haldol PRN for increased agitation.
- 1:1
Chronic Dysphagia
- Prior aspiration events. Was PEG-dependent for a time, but repeatedly removed tube so this was discontinued.
- Speech evaluation for appropriate diet recommended NPO. VSE with high grade aspiration ~50% of bolus aspiration of all levels
- initially family agreed to hospice but now not interested in hospice.
- patient on IDDSI 4/thins - as comfort based feeds.
Benign Hypertension
- Continue amlodipine 5mg
Renal Masses
- Bilateral renal masses noted on prior imaging.
- Patient is currently on Palliative Care at personal care facility.
- Aggressive intervention not desired.
- Followed by Urology as an outpatient.
Dispo: from a [facility] home. Case d/w brother Ruslan. Expressed concern for now lung scarring from likely repetitive aspiration. Also more recent issues with oral intake, limited water intake. Recommended hospice; initially he agreed to hospice
but now not interested in hospice.
DVT Prophylaxis: SC heparin
Code Status: DNR
Anticipated Discharge: > 48 hours
Subjective/Interval History
-
Date of Service: April 02, 2025
Na 156 this AM despite free water replacement
patient without complaints
Objective Data
-
Labs:
Laboratory Results
04/02/25
08:07
WBC 7.3
Hgb 14.7
Hct 46.9
Plt Count 166
Sodium Pending
Potassium Pending
Chloride Pending
Carbon Dioxide Pending
BUN Pending
Creatinine Pending
Glucose Pending
Calcium Pending
Vital Signs:
Vital Signs
Temp Pulse Resp BP Pulse Ox
97.8 F 86 18 163/96 97
04/02/25 07:25 04/02/25 07:25 04/02/25 07:25 04/02/25 07:25 04/02/25 07:25
I&O
04/01/25 04/02/25 04/03/25
06:59 06:59 06:59
Intake Total 480 / 480
Output Total 1500 / 1500
Balance -1500 / -1500 480 / 480
Physical Exam
-
General: No Apparent Distress
HEENT: Normocephalic and Atraumatic
Respiratory: Crackles (faint)
Cardiac: Regular Rhythm and S1/S2
GI: Soft
Musculoskeletal: No Edema
Neuro: AO x 3
Psych: Calm
Data Reviewed
-
Total Time Spent with Patient (in minutes): 41
Labs: Labs Reviewed by me
[2025-04-02 09:14] LABS: Blood Urea Nitrogen 34 mg/dl (9-20); Calcium 10.1 mg/dl (8.4-10.2); Carbon Dioxide 24 mmol/L (22-30); Chloride 123 mmol/L (98-107); Estimated Creatinine Clearance 40 ml/min; Glucose 92 mg/dl (70-99); Potassium 4.6 mmol/L (3.5-5.1); Sodium 156 mmol/L (135-145); eGFR 34.93
--- NOTE | 2025-04-02 10:14 | CM ---
Chart reviewed and patient is for possible discharge today, plan is for patient to return to [facility], home health care case manager reached out to Paige HILLIARD this morning at [facility] and she will pick patient up when stable, they would like a script for speech.
[facility]
Report [phone] Arm[place] at Ext [phone]
[2025-04-02] MEDS: D5W 1000 IV ×2 (12:32→19:00)
[2025-04-02 15:30] VITALS: BP 144/95
--- NOTE | 2025-04-02 15:50 | W.CON.NEPH ---
Consultation
-
Date/Time Consultation Requested: April 02, 2025
Date/Time Consultation Performed: April 02, 2025 at 3 PM
Requesting Provider: Dr. Jacinto
Performing Provider: Dr. Aguilera
Reason for Consultation: Hypernatremia and acute kidney injury
Medical History
-
Chief Complaint: Hypernatremia
History of Present Illness:
64y M with PMH significant for chronic aphasia, bipolar disorder, seizure disorder and CKD who presents to ED from private care facility for evaluation of lethargy, weakness and abnormal labs. History obtained discussion with hospitalist and
records. Patient unable to contribute to history. . Patient reportedly with increased lethargy over the past few days. Labs were done on 03/19 which included Na level of 149. Staff notes that he has not been urinating as much as usual.
Renal consult for hyponatremia and acute on chronic kidney disease with baseline creatinine 1.5 and presenting creatinine 2.5
Past Medical History
PMH significant for chronic aphasia, bipolar disorder, seizure disorder and CKD
Social History
Tobacco: Non-Smoker
Alcohol: None
Family History
Family History: Not Pertinent
Allergies / Home Medications
Allergy/AdvReac Type Severity Reaction Status Date / Time
Barbiturates Allergy Unknown Verified 01/26/25 09:47
phenobarbital Allergy Unknown Verified 01/26/25 09:47
phenytoin Allergy Unknown Verified 01/26/25 09:47
loop diuretics Allergy Unknown Uncoded 10/02/19 14:46
�Medication �Instructions �Recorded �Confirmed �Type
loperamide 2 mg capsule 2 mg PO UD PRN diarrhea 04/30/19 03/30/25 History
ammonium lactate 12 % lotion 1 applic topical DAILY apply to 03/03/23 03/30/25 History
both feet
clobazam 5 mg oral film (Sympazan) 5 mg PO BID Seizures 03/03/23 03/30/25 History
guaifenesin 100 mg/5 mL oral liquid 200 mg PO Q4H PRN cough 03/03/23 03/30/25 History
lacosamide 200 mg tablet 200 mg PO BID Seizures 03/03/23 03/30/25 History
lorazepam 1 mg tablet 1 mg PO QID Mental Health/Anxiety 03/03/23 03/30/25 History
ziprasidone HCl 20 mg capsule 20 mg PO DAILY Mental 03/03/23 03/30/25 History
Health/Anxiety
acetaminophen 325 mg tablet 650 mg PO Q4H PRN mild pain/fever 03/30/25 03/30/25 History
amlodipine 5 mg tablet 5 mg PO DAILY Blood Pressure 03/30/25 03/30/25 History
cholecalciferol (vitamin D3) 50 50 mcg PO DAILY Supplement 03/30/25 03/30/25 History
mcg (2,000 unit) tablet
diazepam 10 mg tablet 10 mg PO DIRECTED 1 hr prior to 03/30/25 03/30/25 History
MRI
diazepam 10 mg tablet 10 mg PO DIRECTED 1 hr prior to 03/30/25 03/30/25 History
dental appt
eucalyptol-methyl 1 ea mucous membrane DAILY MOUTH 03/30/25 03/30/25 History
grzfgxrnnn-ydohgvi-mbfdqv mouthwash CARE
hydralazine 10 mg tablet 10 mg PO DAILYPRN PRN SBP>160 03/30/25 03/30/25 History
magnesium hydroxide 400 mg/5 mL 30 ml PO DAILYPRN PRN constipation 03/30/25 03/30/25 History
oral suspension (Milk of Magnesia)
midazolam 5 mg/spray (0.1 mL) 1 spray intranasal DIRECTED PRN 03/30/25 03/30/25 History
nasal spray (Nayzilam) breakthrough seizure
neomycin-bacitracn Zn-polymyx 3.5 1 applic topical DIRECTED PRN 03/30/25 03/30/25 History
mg-400 unit-5,000 unit/gram top infection prevention
oint (Triple Antibiotic)
polyvinyl alcohol-povidone 0.5 1 drp BOTH EYES Q4HPRN PRN dry eye 03/30/25 03/30/25 History
%-0.6 % eye drops (Artificial
Tears (polyvinyl alcohol/povidone))
sunscreen lotion 1 ea topical DIRECTED PRN sun 03/30/25 03/30/25 History
exposure
zinc oxide 40 % topical ointment 1 applic topical Q2H apply to 03/30/25 03/30/25 History
(Diaper Rash) groin/zen area
ziprasidone HCl 40 mg capsule 40 mg PO QPM Seizures 03/30/25 03/30/25 History
Review of Systems
-
Unable to obtain full review of systems at this time due to: Patient Non Verbal
Physical Exam
Vital Signs
Vital Signs
Temp Pulse Resp BP Pulse Ox
98.2 F 83 18 144/95 94
04/02/25 15:30 04/02/25 15:30 04/02/25 15:30 04/02/25 15:30 04/02/25 15:30
Lab Results
WBC 7.3 10^3/uL (4.8-10.8) 04/02/25 08:07
RBC 5.21 10^6/uL (4.70-6.10) 04/02/25 08:07
Hgb 14.7 g/dL (13.0-18.0) 04/02/25 08:07
Hct 46.9 % (39.0-52.0) 04/02/25 08:07
Plt Count 166 10^3/uL (130-400) 04/02/25 08:07
Sodium 156 mmol/L (135-145) H 04/02/25 08:07
Potassium 4.6 mmol/L (3.5-5.1) 04/02/25 08:07
Chloride 123 mmol/L (98-107) H 04/02/25 08:07
Carbon Dioxide 24 mmol/L (22-30) 04/02/25 08:07
BUN 34 mg/dl (9-20) H 04/02/25 08:07
Creatinine 2.1 mg/dL (0.7-1.3) H 04/02/25 08:07
eGFR 34.93 04/02/25 08:07
Glucose 92 mg/dl (70-99) 04/02/25 08:07
Calcium 10.1 mg/dl (8.4-10.2) 04/02/25 08:07
Albumin 4.2 g/dl (3.5-5.0) 03/30/25 22:16
Physical Exam
General no acute distress
HEENT no cephalic atraumatic extraocular muscle intact no scleral icterus no JVD neck supple
lungs clear to auscultation bilateral
heart regular S1-S2 positive
abdomen soft nontender positive bowel sounds
extremities no edema pulses present bilateral
Neurologically nonfocal
Skin no lesions no abrasions no petechiae
Psych nonverbal
Data Reviewed
-
Radiology: Image Personally Visualized and interpreted
Labs: Labs Reviewed by me and Discussed with Physician
Assessment/Plan
-
64y M with PMH significant for chronic aphasia, bipolar disorder, seizure disorder and CKD who presents to ED from private care facility for evaluation of lethargy, weakness and abnormal labs. History obtained discussion with hospitalist and
records. Patient unable to contribute to history. . Patient reportedly with increased lethargy over the past few days. Labs were done on 03/19 which included Na level of 149. Staff notes that he has not been urinating as much as usual.
Renal consult for hypernatremia and acute on chronic kidney disease with baseline creatinine 1.5 and presenting creatinine 2.5
Impression.
Hypernatremia= documentation of history of DI previous lithium use
Acute on chronic kidney disease stage III A.
Bipolar.
Aphasia chronic.
Plan.
Free water deficit of 5.6 L to correct serum sodium to 140
Currently getting D5W at 125 cc/h which will not correct the deficit and need to compensate for urine output which is difficult to monitor as patient is incontinent.
I will increase D5W to 175 cc/h which is still less than deficit but will avoid rapid correction.
Check urine osmole.
Pending results will consider thiazide diuretic or amiloride.
May ultimately need a Rader catheter for better evaluation though patient is very agitated and may not allow.
Currently on one-to-one
[2025-04-02] MEDS: GEODON 40 MG PO (18:29)
[2025-04-02 23:17] VITALS: BP 132/86
[2025-04-03] VITALS (7 sets, daily range): BP systolic 136–163; BP diastolic 78–114
[2025-04-03] MEDS: D5W 1000 IV ×4 (01:42→20:29)
[2025-04-03 06:55] LABS: Hematocrit 44.2 % (39.0-52.0); Hemoglobin 14.0 g/dL (13.0-18.0); Mean Corp Hgb Conc. 31.7 g/dL (33.0-37.0); Mean Corpuscular Volume 90.0 fL (80.0-94.0); Platelet Count 163 10^3/uL (130-400); Red Cell Dist. Width 14.1 % (11.5-14.5)
[2025-04-03 07:21] LABS: Blood Urea Nitrogen 32 mg/dl (9-20); Calcium 9.5 mg/dl (8.4-10.2); Carbon Dioxide 24 mmol/L (22-30); Chloride 118 mmol/L (98-107); Estimated Creatinine Clearance 44 ml/min; Glucose 117 mg/dl (70-99); Potassium 4.4 mmol/L (3.5-5.1); Sodium 150 mmol/L (135-145); eGFR 39.39
[2025-04-03] MEDS: VIMPAT 200 MG PO ×2 (08:36→20:36)
[2025-04-03] MEDS: NORVASC 5 MG PO (08:37)
[2025-04-03] MEDS: GEODON 20 MG PO (08:37)
[2025-04-03] MEDS: ATIVAN 1 MG PO ×4 (08:38→21:39)
[2025-04-03] MEDS: HEPARIN 5000 UNITS SC ×2 (08:41→20:33)
--- NOTE | 2025-04-03 08:59 | VATNOTE ---
During routine rounds, it was noted that pt's L forearm was very swollen and cool to the touch. Pt seemed discomforted when the area was palpated. IV fluids stopped immediately, IV removed, heat applied to forearm and arm elevated. IV restarted in R
arm due to swelling in L, prior to IV start it was noted that there was an area on pt's r arm that was 11 cm x 3.5 cm that looked red, swollen, and appeared to be tender; area marked with skin marker. PCN visualized site with this RN and is to
contact MD to assess.
--- NOTE | 2025-04-03 11:43 | W.PN.HOSP.TC ---
Today's Communication/Plan
-
IVF/free water replacement per Nephrology
add Vanco for UTI
continue 1:1
Assessment / Plan
Assessment / Plan
Assessment:
EM on CKD III
Dehydration with hypernatremia
- Na level today is 150. Prior levels typically in the upper 140s.
- Dry MM and chronic history of dysphagia/difficulty with PO intake.
- SCr = 2.5 compared to prior baseline of 1.6; currently 1.9
- FWD is nearly 5L - continue D5W. IVF continue
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 Uosm 198, [place] 41
- follow Nephrology recs
Enterococcus UTI
- start Vancomycin, pending final culture
Seizure Disorder
- Stable. continue usual antiepileptic med regimen.
- Patient also on standing Ativan - likely for mood - continue without changes.
- Follow BMP/Na levels closely to avoid rapid alterations. Adjust IVFs as needed.
Bipolar Disorder
Autism/Cognitive Impairment
- Restless and agitated at times
- Continue usual outpatient med regimen for mood stability.
- Haldol PRN for increased agitation.
- 1:1
Chronic Dysphagia
- Prior aspiration events. Was PEG-dependent for a time, but repeatedly removed tube so this was discontinued.
- Speech evaluation for appropriate diet recommended NPO. VSE with high grade aspiration ~50% of bolus aspiration of all levels
- initially family agreed to hospice but now not interested in hospice.
- patient on IDDSI 4/thins - as comfort based feeds.
Benign Hypertension
- Continue amlodipine 5mg
Renal Masses
- Bilateral renal masses noted on prior imaging.
- Patient is currently on Palliative Care at personal care facility.
- Aggressive intervention not desired.
- Followed by Urology as an outpatient.
Dispo: from a [facility] halfway. Case d/w brother Ruslan. Expressed concern for now lung scarring from likely repetitive aspiration. Also more recent issues with oral intake, limited water intake. Recommended hospice; initially he agreed to hospice
but now not interested in hospice.
DVT Prophylaxis: SC heparin
Code Status: DNR
Anticipated Discharge: > 48 hours
Subjective/Interval History
-
Date of Service: April 03, 2025
no overnight events, at times agitated but not requiring restraints
1:1 continues
Na 150
Objective Data
-
Labs:
Laboratory Results
04/03/25
05:53
WBC 6.8
Hgb 14.0
Hct 44.2
Plt Count 163
Sodium 150 H
Potassium 4.4
Chloride 118 H
Carbon Dioxide 24
BUN 32 H
Creatinine 1.9 H
Glucose 117 H
Calcium 9.5
Vital Signs:
Vital Signs
Temp Pulse Resp BP Pulse Ox
98.0 F 74 16 149/98 98
04/03/25 03:13 04/03/25 08:03 04/03/25 03:13 04/03/25 08:03 04/03/25 08:03
I&O
04/02/25 04/03/25 04/04/25
06:59 06:59 06:59
Intake Total 480 / 480 2700 / 2700
Output Total 2450 / 2450
Balance 480 / 480 250 / 250
Physical Exam
-
General: No Apparent Distress
HEENT: Normocephalic and Atraumatic
Respiratory: Negative Wheezes
Cardiac: Regular Rhythm and S1/S2
GI: Soft
Skin: Other (RUE redness - demarcated, no weeping. no warmth)
Neuro: AO x 3
Psych: Calm
Data Reviewed
-
Total Time Spent with Patient (in minutes): 41
Labs: Labs Reviewed by me
[2025-04-03] MEDS: ONFI 5 MG PO ×2 (12:22→20:36)
--- NOTE | 2025-04-03 12:42 | W.PN.NEPH.PH ---
Today's Communication / Plan
-
ddavp
Assessment/Plan
-
64y M with PMH significant for chronic aphasia, bipolar disorder, seizure disorder and CKD who presents to ED from private care facility for evaluation of lethargy, weakness and abnormal labs. History obtained discussion with hospitalist and
records. Patient unable to contribute to history. . Patient reportedly with increased lethargy over the past few days. Labs were done on 03/19 which included Na level of 149. Staff notes that he has not been urinating as much as usual.
Renal consult for hypernatremia and acute on chronic kidney disease with baseline creatinine 1.5 and presenting creatinine 2.5
Impression.
Hypernatremia= documentation of history of DI previous lithium use
Acute on chronic kidney disease stage III A.
Bipolar.
Aphasia chronic.
Plan.
continue IVF with D5W, reduce rate
DDAVP with f/u Uosm to gauge response
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
will ultimately benefit from HCTZ
pureed diet
-
-
Date of Service: April 03, 2025
CC / HPI / ROS
-
Chief Complaint:
hypernatremia
History of Present Illness:
Na down to 150 with D5W
EM/Cr down to 1.9
BPs stable high
Review of Systems:
awake, alert. not oriented
Labs
-
Labs:
WBC 6.8 10^3/uL (4.8-10.8) 04/03/25 05:53
RBC 4.91 10^6/uL (4.70-6.10) 04/03/25 05:53
Hgb 14.0 g/dL (13.0-18.0) 04/03/25 05:53
Hct 44.2 % (39.0-52.0) 04/03/25 05:53
Plt Count 163 10^3/uL (130-400) 04/03/25 05:53
Sodium 150 mmol/L (135-145) H 04/03/25 05:53
Potassium 4.4 mmol/L (3.5-5.1) 04/03/25 05:53
Chloride 118 mmol/L (98-107) H 04/03/25 05:53
Carbon Dioxide 24 mmol/L (22-30) 04/03/25 05:53
BUN 32 mg/dl (9-20) H 04/03/25 05:53
Creatinine 1.9 mg/dL (0.7-1.3) H 04/03/25 05:53
eGFR 39.39 04/03/25 05:53
Glucose 117 mg/dl (70-99) H 04/03/25 05:53
Calcium 9.5 mg/dl (8.4-10.2) 04/03/25 05:53
Albumin 4.2 g/dl (3.5-5.0) 03/30/25 22:16
Physical Exam
-
Vital Signs:
Vital Signs
Temp Pulse Resp BP Pulse Ox
98.0 F 74 16 149/98 98
04/03/25 03:13 04/03/25 08:03 04/03/25 03:13 04/03/25 08:03 04/03/25 08:03
Cardiovascular:: Regular rate and rhythm
Respiratory:: Bilateral: Coarse
Lung Excursion:: Normal
Abdomen:: Nontender and Soft
Bowel Sounds:: Normal
Extremity Edema:: None: Bilateral:
[2025-04-03] MEDS: TRIMOX/AMOXIL 500 MG PO ×2 (13:45→21:39)
[2025-04-03] MEDS: DDAVP 0.05 MG PO (13:47)
[2025-04-03] MEDS: ORETIC 25 MG PO (18:23)
[2025-04-03] MEDS: GEODON 40 MG PO (18:25)
[2025-04-03] MEDS: DDAVP 0.1 MG PO (20:33)
[2025-04-04 02:52] VITALS: BP 120/87
[2025-04-04] MEDS: D5W 1000 IV ×2 (03:17→11:30)
[2025-04-04 06:00] VITALS: BMI 24.8
[2025-04-04 07:12] VITALS: BP 132/86
[2025-04-04] MEDS: DDAVP 0.1 MG PO (08:18)
[2025-04-04] MEDS: ATIVAN 1 MG PO ×4 (08:18→22:38)
[2025-04-04] MEDS: ONFI 5 MG PO ×2 (08:19→20:33)
[2025-04-04] MEDS: GEODON 20 MG PO (08:19)
[2025-04-04] MEDS: VIMPAT 200 MG PO ×2 (08:20→20:35)
[2025-04-04] MEDS: NORVASC 5 MG PO (08:20)
[2025-04-04] MEDS: HEPARIN 5000 UNITS SC ×2 (08:21→20:35)
[2025-04-04] MEDS: ORETIC 25 MG PO (08:21)
[2025-04-04] MEDS: TRIMOX/AMOXIL 500 MG PO ×3 (08:22→22:38)
[2025-04-04 09:28] LABS: Hematocrit 48.3 % (39.0-52.0); Hemoglobin 15.4 g/dL (13.0-18.0); Mean Corp Hgb Conc. 31.9 g/dL (33.0-37.0); Mean Corpuscular Volume 88.8 fL (80.0-94.0); Platelet Count 172 10^3/uL (130-400); Red Cell Dist. Width 14.0 % (11.5-14.5)
[2025-04-04 09:51] LABS: Blood Urea Nitrogen 26 mg/dl (9-20); Calcium 9.8 mg/dl (8.4-10.2); Carbon Dioxide 26 mmol/L (22-30); Chloride 111 mmol/L (98-107); Estimated Creatinine Clearance 47 ml/min; Glucose 114 mg/dl (70-99); Potassium 4.0 mmol/L (3.5-5.1); Sodium 146 mmol/L (135-145); eGFR 42.03
--- NOTE | 2025-04-04 10:35 | W.PN.HOSP.TC ---
Today's Communication/Plan
-
continue Free water replacement
HCTZ
monitor Na levels
continue UTI abx
Assessment / Plan
Assessment / Plan
Assessment:
EM on CKD III
Dehydration with hypernatremia
- Dry MM and chronic history of dysphagia/difficulty with PO intake.
- Na level today is 146. Prior levels typically in the upper 140s.
- SCr = 2.5 compared to prior baseline of 1.6; currently 1.8
- continue free water replacement, deficit ~ 5L
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
- no improvement in Uosm after DDVAP
- started on HCTZ
- goal Na <140
- Appreciate Nephrology recs
Enterococcus UTI
- continue Amoxil 500mg TID, x 1 week
Seizure Disorder
- Stable. continue usual antiepileptic med regimen.
- Patient also on standing Ativan - likely for mood - continue without changes.
- Follow BMP/Na levels closely to avoid rapid alterations. Adjust IVFs as needed.
Bipolar Disorder
Autism/Cognitive Impairment
- Restless and agitated at times
- Continue usual outpatient med regimen for mood stability.
- Haldol PRN for increased agitation.
- 1:1
Chronic Dysphagia
- Prior aspiration events. Was PEG-dependent for a time, but repeatedly removed tube so this was discontinued.
- Speech evaluation for appropriate diet recommended NPO. VSE with high grade aspiration ~50% of bolus aspiration of all levels
- initially family agreed to hospice but now not interested in hospice.
- patient on IDDSI 4/thins - as comfort based feeds.
Benign Hypertension
- Continue amlodipine 5mg
Renal Masses
- Bilateral renal masses noted on prior imaging.
- Patient is currently on Palliative Care at personal care facility.
- Aggressive intervention not desired.
- Followed by Urology as an outpatient.
Dispo: from a [facility] senior living. Case d/w brother Ruslan. Expressed concern for now lung scarring from likely repetitive aspiration. Also more recent issues with oral intake, limited water intake. Recommended hospice; initially he agreed to hospice
but now not interested in hospice.
DVT Prophylaxis: SC heparin
Code Status: DNR
Anticipated Discharge: 24 - 48 hours
Subjective/Interval History
-
Date of Service: April 04, 2025
resting comfortably, no complaints
Objective Data
-
Labs:
Laboratory Results
04/04/25 04/04/25
09:03 09:04
WBC 7.5
Hgb 15.4
Hct 48.3
Plt Count 172
Sodium 146 H
Potassium 4.0
Chloride 111 H
Carbon Dioxide 26
BUN 26 H
Creatinine 1.8 H
Glucose 114 H
Calcium 9.8
Vital Signs:
Vital Signs
Temp Pulse Resp BP Pulse Ox
98.3 F 75 18 132/86 95
04/04/25 07:12 04/04/25 07:12 04/04/25 07:12 04/04/25 07:12 04/04/25 07:12
I&O
04/03/25 04/04/25 04/05/25
06:59 06:59 06:59
Intake Total 2700 / 2700 1900 / 1900
Output Total 2450 / 2450 2200 / 2200
Balance 250 / 250 -300 / -300
Physical Exam
-
General: No Apparent Distress
HEENT: Normocephalic and Atraumatic
Respiratory: Negative Wheezes
Cardiac: Regular Rhythm and S1/S2
GI: Soft and Nontender
Genito-urinary: No Costovertebral Tender
Skin: Other (RUE redness associated with patient self inflicted scratch. no warmth or tenderness)
Neuro: AO x 3
Psych: Calm
Data Reviewed
-
Total Time Spent with Patient (in minutes): 41
Labs: Labs Reviewed by me
[2025-04-04 11:15] VITALS: BP 145/94
--- NOTE | 2025-04-04 11:17 | W.PN.NEPH.PH ---
Today's Communication / Plan
-
reduce IVF
Assessment/Plan
-
64y M with PMH significant for chronic aphasia, bipolar disorder, seizure disorder and CKD who presents to ED from private care facility for evaluation of lethargy, weakness and abnormal labs. History obtained discussion with hospitalist and
records. Patient unable to contribute to history. . Patient reportedly with increased lethargy over the past few days. Labs were done on 03/19 which included Na level of 149. Staff notes that he has not been urinating as much as usual.
Renal consult for hypernatremia and acute on chronic kidney disease with baseline creatinine 1.5 and presenting creatinine 2.5
Impression.
Hypernatremia= documentation of history of DI previous lithium use
Acute on chronic kidney disease stage III A.
Bipolar.
Aphasia chronic.
Plan.
continue IVF with D5W, reduce rate, plan to dc tomorrow
dc DDAVP
continue HCTZ
pureed diet
follow BMP
free access to water
-
-
Date of Service: April 04, 2025
CC / HPI / ROS
-
Chief Complaint:
hypernatremia
History of Present Illness:
Na down to 146 with D5W
EM/Cr down to 1.8
BPs stable high
Review of Systems:
awake, alert. not oriented
Labs
-
Labs:
WBC 7.5 10^3/uL (4.8-10.8) 04/04/25 09:04
RBC 5.44 10^6/uL (4.70-6.10) 04/04/25 09:04
Hgb 15.4 g/dL (13.0-18.0) 04/04/25 09:04
Hct 48.3 % (39.0-52.0) 04/04/25 09:04
Plt Count 172 10^3/uL (130-400) 04/04/25 09:04
Sodium 146 mmol/L (135-145) H 04/04/25 09:03
Potassium 4.0 mmol/L (3.5-5.1) 04/04/25 09:03
Chloride 111 mmol/L (98-107) H 04/04/25 09:03
Carbon Dioxide 26 mmol/L (22-30) 04/04/25 09:03
BUN 26 mg/dl (9-20) H 04/04/25 09:03
Creatinine 1.8 mg/dL (0.7-1.3) H 04/04/25 09:03
eGFR 42.03 04/04/25 09:03
Glucose 114 mg/dl (70-99) H 04/04/25 09:03
Calcium 9.8 mg/dl (8.4-10.2) 04/04/25 09:03
Albumin 4.2 g/dl (3.5-5.0) 03/30/25 22:16
Physical Exam
-
Vital Signs:
Vital Signs
Temp Pulse Resp BP Pulse Ox
98.0 F 91 18 145/94 95
04/04/25 11:15 04/04/25 11:15 04/04/25 11:15 04/04/25 11:15 04/04/25 11:15
Cardiovascular:: Regular rate and rhythm
Respiratory:: Bilateral: CTA
Lung Excursion:: Normal
Abdomen:: Nontender and Soft
Bowel Sounds:: Normal
Extremity Edema:: None: Bilateral:
[2025-04-04] MEDS: D5W IV (11:53)
--- NOTE | 2025-04-04 14:38 | VATNOTE ---
DURING ROUTINE VAT ROUNDS, LA INFILTRATE APPEARS RESOLVED, SOME BRUISING NOTED AT AC, OTHERWISE NO REDNESS OR EDEMA. RA INFILTRATE CONTINUES WITH MEASUREMENT 10CMX3.5CM, 2ND SMALL AREA OF INFILTRATE 9APL5DF. WARM COMPRESS APPLIED, ARM ELEVATED. WILL
CONT TO MONITOR
--- NOTE | 2025-04-04 15:03 | CM ---
manager php received a call from physician that patient maybe discharged tomorrow, case monitor reached out to [facility] [phone] data operations leader nurse for [facility] and [facility] can pick patient up between 3-5pm tomorrow is stable, and they will need case monitor
to call and confirm tomorrow. They will need discharge summary and escript and hard copy script at discharge. Physician made aware.
[facility]
Report [phone] Arminda at Ext [phone]
[2025-04-04 15:10] VITALS: BP 149/97
[2025-04-04] MEDS: GEODON 40 MG PO (17:11)
[2025-04-04 19:33] VITALS: BP 122/80
[2025-04-04 23:30] VITALS: BP 125/83
--- NOTE | 2025-04-05 00:30 | PTCARENOTE ---
Pt had two episodes of ventricular bigeminy on heart monitor since beginning of shift. VSS. No Mg level drawn this hospital stay. Asked House Provider, Jw Kennedy, for Mg level order. Orders received for Mg level with AM labs.
[2025-04-05] MEDS: D5W 1000 IV (01:58)
[2025-04-05 03:37] VITALS: BP 112/81
[2025-04-05 06:00] VITALS: BMI 24.8
[2025-04-05 07:02] LABS: Hematocrit 44.4 % (39.0-52.0); Hemoglobin 15.0 g/dL (13.0-18.0); Mean Corp Hgb Conc. 33.8 g/dL (33.0-37.0); Mean Corpuscular Volume 85.7 fL (80.0-94.0); Platelet Count 152 10^3/uL (130-400); Red Cell Dist. Width 13.8 % (11.5-14.5)
[2025-04-05 07:20] LABS: Blood Urea Nitrogen 33 mg/dl (9-20); Calcium 9.7 mg/dl (8.4-10.2); Carbon Dioxide 25 mmol/L (22-30); Chloride 110 mmol/L (98-107); Estimated Creatinine Clearance 47 ml/min; Glucose 110 mg/dl (70-99); Magnesium 2.1 mg/dl (1.6-2.3); Potassium 3.8 mmol/L (3.5-5.1); Sodium 141 mmol/L (135-145); eGFR 42.03
[2025-04-05 07:30] VITALS: BP 121/82
[2025-04-05] MEDS: ORETIC 25 MG PO (08:06)
[2025-04-05] MEDS: ONFI 5 MG PO (08:06)
[2025-04-05] MEDS: GEODON 20 MG PO (08:06)
[2025-04-05] MEDS: ATIVAN 1 MG PO ×2 (08:06→11:37)
[2025-04-05] MEDS: NORVASC 5 MG PO (08:06)
[2025-04-05] MEDS: HEPARIN 5000 UNITS SC (08:06)
[2025-04-05] MEDS: VIMPAT 200 MG PO (08:06)
[2025-04-05] MEDS: TRIMOX/AMOXIL 500 MG PO (08:15)
--- NOTE | 2025-04-05 09:40 | CM ---
Addendum entered by Naheed Hughes RN 04/05/25 10:16:
Spoke with patient's brother Ruslan and provided update re; d/c today including script for PT/OT/ST with [facility] that [facility] will setup. Ruslan is in agreement with d/c.
Original Note:
Patient from [facility] with Hx autism, bipolar disorder, chronic aphasia, seizure disorder with Dx EM, UTI. Room air. Receiving IVF. PT recommends skilled rehab v home PT. OT recommends SNF vs [facility] w/assist. Seen by ST.
Spoke with Pastor [facility] Nurse almond huller (ph [phone]);
they are ready to accept the patient back today. As Pastor states patient has developmental delay, IMM completed with Pastor and copy sent to her email at [email or web address].
Pastor requested scripts and e-scripts for all new meds, dose changes/frequency changes and any meds that are discontinued ---> message to Dr Jacinto.
Discussed patient's current functional status as per PT/OT. [facility] prefers to set him up with [facility], so there is nothing for hospital to fax to [facility] for this. Pastor requested script for PT/OT/ST ---> message to Dr Jacinto.
They are arranging a w/c van ride for him today between 3-5pm and their staff will come up to patient's room.
All scripts to be sent in packet with patient.
The ph for report to Pastor [phone], fax [phone].
Plan return to [facility] today by [facility] arranged w/c van, with scripts for med changes, script for PT/OT/ST.
--- NOTE | 2025-04-05 11:15 | W.PN.HOSP.TC ---
Addendum entered and electronically signed by Selina Jacinto MD 04/05/25 11:54:
next dose of HCTZ can be anytime on Sunday when prescription is picked up after pharmacy opens. Next dose of Amoxil suspension can be Sunday (received Vanco in hospital Sunday to account for pharmacy being closed)
Original Note:
Today's Communication/Plan
-
dc back to [facility]
Assessment / Plan
Assessment / Plan
Assessment:
EM on CKD III
Dehydration with hypernatremia
- Dry MM and chronic history of dysphagia/difficulty with PO intake.
- Na level today is 141. Prior levels typically in the upper 140s.
- SCr = 2.5 compared to prior baseline of 1.6; currently 1.8
- has correct free water deficit with IVF
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
- no improvement in Uosm after DDVAP which is now stopped
- started on HCTZ
- goal Na <140; repeat BMP Sunday
- Appreciate Nephrology recs
Enterococcus UTI
- continue Amoxil 500mg TID, x 1 week
Seizure Disorder
- Stable. continue usual antiepileptic med regimen.
- Patient also on standing Ativan - likely for mood - continue without changes.
- Follow BMP/Na levels closely to avoid rapid alterations. Adjust IVFs as needed.
Bipolar Disorder
Autism/Cognitive Impairment
- Restless and agitated at times
- Continue usual outpatient med regimen for mood stability.
- Haldol PRN for increased agitation.
- 1:1
Chronic Dysphagia
- Prior aspiration events. Was PEG-dependent for a time, but repeatedly removed tube so this was discontinued.
- Speech evaluation for appropriate diet recommended NPO. VSE with high grade aspiration ~50% of bolus aspiration of all levels
- initially family agreed to hospice but now not interested in hospice.
- patient on IDDSI 4/thins - as comfort based feeds.
Benign Hypertension
- Continue amlodipine 5mg
Renal Masses
- Bilateral renal masses noted on prior imaging.
- Patient is currently on Palliative Care at personal care facility.
- Aggressive intervention not desired.
- Followed by Urology as an outpatient.
Dispo: from a [facility] halfway. Case d/w brother Ruslan. Expressed concern for now lung scarring from likely repetitive aspiration. Also more recent issues with oral intake, limited water intake. Recommended hospice; initially he agreed to hospice
but now not interested in hospice.
DVT Prophylaxis: SC heparin
Code Status: DNR
More than 30 minutes spent in discharge including
Final examination of the patient
Summarizing hospital stay
Instructions for continuing care to all relevant caregivers
Preparation of discharge records, prescriptions, and referral forms
Total time spent (in minutes): 41
Anticipated Discharge: Today
Subjective/Interval History
-
Date of Service: April 05, 2025
no overnight events
Na 141
Objective Data
-
Labs:
Laboratory Results
04/05/25
06:38
WBC 9.2
Hgb 15.0
Hct 44.4
Plt Count 152
Sodium 141
Potassium 3.8
Chloride 110 H
Carbon Dioxide 25
BUN 33 H
Creatinine 1.8 H
Glucose 110 H
Calcium 9.7
Vital Signs:
Vital Signs
Temp Pulse Resp BP Pulse Ox
97.4 F 81 16 121/82 93
04/05/25 07:30 04/05/25 07:30 04/05/25 07:30 04/05/25 07:30 04/05/25 07:30
I&O
04/04/25 04/05/25 04/06/25
06:59 06:59 06:59
Intake Total 1900 / 1900 2280 / 2280
Output Total 2200 / 2200 1550 / 1550
Balance -300 / -300 730 / 730
Physical Exam
-
General: No Apparent Distress
HEENT: Normocephalic and Atraumatic
Respiratory: Negative Wheezes
Cardiac: Regular Rhythm and S1/S2
GI: Soft
Genito-urinary: No Costovertebral Tender
Neuro: AO x 3
Psych: Calm
Data Reviewed
-
Total Time Spent with Patient (in minutes): 41
Labs: Labs Reviewed by me
--- NOTE | 2025-04-05 11:23 | W.DS.TRANS ---
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
-
Discharge Instructions:
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
hypernatremia
Diet Other diet
Additional Diets IDDSI 4 pureed diet - comfort feeds given high
risk aspiration
Activity As tolerated
Other Services PT,OT,ST
Instructions:
Stand-Alone Forms:
Changes to Home Medications: No
Discharge Medications:
DC Medications w/original date entered in [employer]
loperamide 2 mg capsule 2 mg PO UD PRN diarrhea 04/30/19
ammonium lactate 12 % lotion 1 applic topical DAILY apply to both feet 03/03/23
clobazam 5 mg oral film (Sympazan) 5 mg PO BID Seizures 03/03/23
guaifenesin 100 mg/5 mL oral liquid 200 mg PO Q4H PRN cough 03/03/23
lacosamide 200 mg tablet 200 mg PO BID Seizures 03/03/23
lorazepam 1 mg tablet 1 mg PO QID Mental Health/Anxiety 03/03/23
ziprasidone HCl 20 mg capsule 20 mg PO DAILY Mental Health/Anxiety 03/03/23
acetaminophen 325 mg tablet 650 mg PO Q4H PRN mild pain/fever 03/30/25
amlodipine 5 mg tablet 5 mg PO DAILY Blood Pressure 03/30/25
cholecalciferol (vitamin D3) 50 mcg (2,000 unit) tablet 50 mcg PO DAILY Supplement 03/30/25
diazepam 10 mg tablet 10 mg PO DIRECTED 1 hr prior to MRI 03/30/25
diazepam 10 mg tablet 10 mg PO DIRECTED 1 hr prior to dental appt 03/30/25
eucalyptol-methyl whizxbnkaw-ijyzphl-jbangv mouthwash 1 ea mucous membrane DAILY MOUTH CARE 03/30/25
magnesium hydroxide 400 mg/5 mL oral suspension (Milk of Magnesia) 30 ml PO DAILYPRN PRN constipation 03/30/25
midazolam 5 mg/spray (0.1 mL) nasal spray (Nayzilam) 1 spray intranasal DIRECTED PRN breakthrough seizure 03/30/25
neomycin-bacitracn Zn-polymyx 3.5 mg-400 unit-5,000 unit/gram top oint (Triple Antibiotic) 1 applic topical DIRECTED PRN infection prevention 03/30/25
polyvinyl alcohol-povidone 0.5 %-0.6 % eye drops (Artificial Tears (polyvinyl alcohol/povidone)) 1 drp BOTH EYES Q4HPRN PRN dry eye 03/30/25
sunscreen lotion 1 ea topical DIRECTED PRN sun exposure 03/30/25
zinc oxide 40 % topical ointment (Diaper Rash) 1 applic topical Q2H apply to groin/zen area 03/30/25
ziprasidone HCl 40 mg capsule 40 mg PO QPM Seizures 03/30/25
amoxicillin 250 mg/5 mL oral suspension 500 mg (10 mL) PO TID #200 mL 04/05/25
hydrochlorothiazide 25 mg tablet 25 mg PO DAILY #30 tabs 04/05/25
Home Medication Changes
Pending Results: No
Total time spent discharging patient (in min): 41
--- NOTE | 2025-04-05 11:30 | W.PN.NEPH.PH ---
Today's Communication / Plan
-
cap IVF
Assessment/Plan
-
64y M with PMH significant for chronic aphasia, bipolar disorder, seizure disorder and CKD who presents to ED from private care facility for evaluation of lethargy, weakness and abnormal labs. History obtained discussion with hospitalist and
records. Patient unable to contribute to history. . Patient reportedly with increased lethargy over the past few days. Labs were done on 03/19 which included Na level of 149. Staff notes that he has not been urinating as much as usual.
Renal consult for hypernatremia and acute on chronic kidney disease with baseline creatinine 1.5 and presenting creatinine 2.5
Impression.
Hypernatremia= documentation of history of DI previous lithium use
Acute on chronic kidney disease stage III A.
Bipolar.
Aphasia chronic.
Plan.
cap IVF
no DDAVP
continue HCTZ
pureed diet
follow BMP
free access to water
-
-
Date of Service: April 05, 2025
CC / HPI / ROS
-
Chief Complaint:
hypernatremia
History of Present Illness:
Na down to 141 with D5W
EM/Cr down to 1.8 stable
BPs stable high
Review of Systems:
awake, alert. not oriented
Labs
-
Labs:
WBC 9.2 10^3/uL (4.8-10.8) 04/05/25 06:38
RBC 5.18 10^6/uL (4.70-6.10) 04/05/25 06:38
Hgb 15.0 g/dL (13.0-18.0) 04/05/25 06:38
Hct 44.4 % (39.0-52.0) 04/05/25 06:38
Plt Count 152 10^3/uL (130-400) 04/05/25 06:38
Sodium 141 mmol/L (135-145) 04/05/25 06:38
Potassium 3.8 mmol/L (3.5-5.1) 04/05/25 06:38
Chloride 110 mmol/L (98-107) H 04/05/25 06:38
Carbon Dioxide 25 mmol/L (22-30) 04/05/25 06:38
BUN 33 mg/dl (9-20) H 04/05/25 06:38
Creatinine 1.8 mg/dL (0.7-1.3) H 04/05/25 06:38
eGFR 42.03 04/05/25 06:38
Glucose 110 mg/dl (70-99) H 04/05/25 06:38
Calcium 9.7 mg/dl (8.4-10.2) 04/05/25 06:38
Albumin 4.2 g/dl (3.5-5.0) 03/30/25 22:16
Physical Exam
-
Vital Signs:
Vital Signs
Temp Pulse Resp BP Pulse Ox
97.4 F 81 16 121/82 93
04/05/25 07:30 04/05/25 07:30 04/05/25 07:30 04/05/25 07:30 04/05/25 07:30
Cardiovascular:: Regular rate and rhythm
Respiratory:: Bilateral: Coarse
Lung Excursion:: Normal
Abdomen:: Nontender and Soft
Bowel Sounds:: Normal
Extremity Edema:: None: Bilateral:
[2025-04-05] MEDS: SENOKOT-S 2 TABLET PO (11:31)
[2025-04-05] MEDS: VANCOCIN 540 MG IV (11:31)
[2025-04-05 12:00] VITALS: BP 130/92
[2025-04-05 15:00] VITALS: BP 128/84
== END 2025-04-05 15:41 | disposition home health service (06) | DRG 683 ==
LOC: 4 WEST ACU 01:46
PROVIDERS: Specialist; Student in an Organized Health Care Education/Training Program; ADMITTING PHYSICIAN Hospitalist; ATTENDING PHYSICIAN Internal Medicine; CONSULT PHYSICIAN Internal Medicine Nephrology; EMERGENCY PHYSICIAN Student in an Organized Health Care Education/Training Program; FAMILY PHYSICIAN Internal Medicine
DX: N17.9 Acute kidney failure, unspecified (principal); E87.0 Hyperosmolality and hypernatremia; F03.93 Unspecified dementia, unspecified severity, with mood disturbance; F84.0 Autistic disorder; N25.1 Nephrogenic diabetes insipidus; N18.31 Chronic kidney disease, stage 3a; E86.0 Dehydration; G40.909 Epilepsy, unspecified, not intractable, without status epilepticus; F31.9 Bipolar disorder, unspecified; I12.9 Hypertensive chronic kidney disease with stage 1 through stage 4 chronic kidney disease, or unspecified chronic kidney disease; Z66 Do not resuscitate; Z51.5 Encounter for palliative care; E11.22 Type 2 diabetes mellitus with diabetic chronic kidney disease; Z79.899 Other long term (current) drug therapy
CPT/HCPCS: 71046; 74230; 80048; 80053; 81003; 81015; 82570; 83735; 83935; 84300; 84443; 85025; 85027; 87070; 87077; 87086; 87186; 92526; 92610; 92611; 93005; 97163; 97167; 99285

== ENCOUNTER 2025-05-22 13:14 | Emergency (ER) | payer MEDICARE, MEDICAID, SELFPAY ==
[2025-05-22 13:26] VITALS: BP 113/77
[2025-05-22 15:00] VITALS: BMI 24.0
[2025-05-22 15:02] VITALS: BP 106/73
[2025-05-22 15:05] LABS: Hematocrit 42.3 % (39.0-52.0); Hemoglobin 14.3 g/dL (13.0-18.0); Mean Corp Hgb Conc. 33.8 g/dL (33.0-37.0); Mean Corpuscular Volume 86.0 fL (80.0-94.0); Nucleated Red Blood Cells % 0 % (-); Platelet Count 187 10^3/uL (130-400); Red Cell Dist. Width 13.6 % (11.5-14.5)
[2025-05-22 15:06] VITALS: BP 106/73
[2025-05-22 15:25] LABS: ALT (SGPT) 27 U/L (0-50); AST (SGOT) 27 U/L (17-59); Albumin 4.4 g/dl (3.5-5.0); Alkaline Phosphatase 82 U/L (38-126); Blood Urea Nitrogen 45 mg/dl (9-20); Calcium 10.3 mg/dl (8.4-10.2); Carbon Dioxide 33 mmol/L (22-30); Chloride 97 mmol/L (98-107); Estimated Creatinine Clearance 51 ml/min; Glucose 102 mg/dl (70-99); Potassium 3.9 mmol/L (3.5-5.1); Sodium 138 mmol/L (135-145); Total Protein 7.2 g/dl (6.3-8.2); eGFR 45.02
[2025-05-22 16:00] VITALS: BP 110/76
--- NOTE | 2025-05-22 16:03 | ED.GENMED ---
History of Present Illness
General
Chief Complaint: Fatigue
Exam Limitations: other (Patient with autism, developmental delays)
Time Seen by Provider: 05/22/25 15:13
History of Present Illness
History of Present Illness:
Patient is a 64-year-old male with autism developmental delays , chronic kidney disease stage IIIb nephrogenic diabetes insipidus, chronic and severe dysphagia, UTI bipolar disorder seizure disorder benign hypertension, renal mass brought to the ER
by staff. Patient is from a residential facility. Staff reports patient did not see himself today though no obvious other symptoms. No obvious cough or fevers. He is appetite has been the same as it typically is. No obvious seizure activity
noted caregiver reports patient does have a history of aspiration pneumonia though she reports it does not appear the patient has had any difficulty breathing cough or fevers.
Past History
Past History
ED Past Medical History: HTN, NIDDM, Seizures, Hypothyroidism, Psychiatric (bipolar.) and Other (Ataxia, Explusive disorder, Autism. Dysphasa,)
ED Past Surgical History: Other
Patient has exhibited threatening behavior?: No
PSI?: No
Social History
Tobacco: Non-smoker
Alcohol: None
Drug: None
Personal: Single
Living: assisted living ([facility] home with carge givers)
Employment: Not employed
Family History
Family History: Other (Reviewed and non-contributory)
Phy Exam
General Physical Exam
General Presentation: no apparent distress
General age: appears stated age
General Skin: warm and dry
General Habitus: normal
General Mental: alert
General Hydration: appears well hydrated
Cardiovascular Exam
Cardiovascular Exam: regular rate/rhythm, no murmur and normal peripheral pulses
Pulmonary Exam
Pulmonary Exam: lungs clear and no respiratory distress
Neurological Exam
Neurological Exam: alert and other (baseline as per caregiver , minimally verbal follows commands )
Musculoskeletal Exam
Musculoskeletal Exam: full ROM
Skin Exam
Skin Exam: normal color and warm/dry
Psychiatric Exam
Psychiatric Exam: normal mood/affect
Course
Orders/Labs/Results
Orders:
Orders
05/22/25 14:58
Complete Blood Count/With Diff Urgent
Comprehensive Metabolic Panel Urgent
05/22/25 16:15
Chest [CR Chest - 2 Views ] Urgent
Comment:
Reason For Exam: change in ms
05/22/25 16:17
Straight cath- Treatment ONCE
05/22/25 16:30
COVID-19 Antigen Urgent
Source: Nasal Swab
UA Reflex to Culture [Urinalysis Reflex To Culture] Urgent
Date Specimen was Collected: 05/22/25
Time Specimen was Collected: 16:10
Urine Microscopic Reflex Cult Urgent
Influenza A+B Rapid Molecular Urgent
JENNIFER Source: Nasal Swab
Specimen Description:
Urine Culture Urgent
JENNIFER Source: U
Specimen Description:
Date Specimen was Collected: 05/22/25
Time Specimen was Collected: 16:10
05/22/25 18:19
Oseltamivir Phosphate [Tamiflu] 75 mg PO NOW STA
Abnormal Lab Results
05/22/25 05/22/25
14:58 16:30
Monocytes % 9.9 H %
(1.7-9.3)
Chloride 97 L mmol/L
(98-107)
Carbon Dioxide 33 H mmol/L
(22-30)
BUN 45 H mg/dl
(9-20)
Creatinine 1.7 H mg/dL
(0.7-1.3)
Glucose 102 H mg/dl
(70-99)
Calcium 10.3 H mg/dl
(8.4-10.2)
Leukocyte Esterase Rfl 1+ A
(Negative)
Urine Bacteria (Reflex) Few A
(Negative)
Urine Albumin (Reflex) 2+ A
(Neg - Trace)
05/22/25 14:58
05/22/25 14:58
Vital Signs
Initial and Last Documented VS:
Initial Vital Signs
Pulse Resp BP Pulse Ox
66 20 113/77 100
05/22/25 13:26 05/22/25 13:26 05/22/25 13:26 05/22/25 13:26
Last Documented Vital Signs
Temp Pulse Resp BP Pulse Ox
97.7 F 60 12 106/73 100
05/22/25 15:02 05/22/25 15:02 05/22/25 15:02 05/22/25 15:02 05/22/25 16:04
Dormitory Keeper consulted with Physician
Dormitory Keeper consulted with physician?: Yes ([facility] )
MDM/Problems Addressed
Differential Diagnosis Includes:
Not limited to viral syndrome, influenza, COVID, dehydration, UTI, pneumonia, electrolyte abnormality
MDM/Problems Addressed:
Patient is a 64-year-old male from residential facility past medical history of autism, seizure disorder chronic kidney disease presenting for evaluation. Caregiver reports the patient did not feed himself today. No obvious fevers or cough. No
obvious seizure activity noted by staff at residential facility. Patient was found to be flu A positive. Patient is afebrile with a normal white count chest x-ray negative lungs are clear no acute distress elevated renal function however at
baseline with a normal potassium normal sodium. Pt's seizure meds include Sympazan's around 2 patient is well-appearing no acute distress lungs are clear not hypoxic afebrile stable for discharge home. Case reviewed with ED physician will discharge
on Tamiflu as patient has chronic comorbidities. This medication was renally dosed as patient has chronic kidney disease stage III..
*Radiology
Radiology exam reviewed: radiology read reviewed
*Pulse Oximetry
SaO2: 100
Oxygen Mode of Delivery: Room air
Patient hypoxic: no
*Critical Care Note
Total Time (30-74mins, 75-104mins- exclusive of procedures): Not Applicable
ED Attending Note
-
Portions of this chart may have been created with voice recognition software.� Occasional wrong word or��sound alike� substitutions may have occurred due to the inherent limitations of voice recognition software.
Discharge Plan
Departure
Patient Disposition: Home (Routine Discharge)
Date of Disposition: 05/22/25
Time of Disposition: 18:24
Patient with high blood pressure during this ER visit?: No
Covid-19: Not Applicable
Discharge Problem:
Influenza A
Instructions: Flu in adults (DC)
Prescriptions:
New
oseltamivir [Tamiflu] 30 mg capsule
30 mg PO BID 4 Days Qty: 8 0RF
No Action
loperamide 2 MG capsule
2 mg PO UD MDD 16 mg PRN (Reason: diarrhea)
Rx Instructions:
2 caps after 1 loose bm, then 1 cap after each loose bm
ammonium lactate 12 % lotion
1 applic TOPICAL DAILY
guaifenesin 100 mg/5 mL Liquid
200 mg PO Q4H MDD 40 ml PRN (Reason: cough)
ziprasidone HCl 20 mg capsule
20 mg PO DAILY
lorazepam 1 mg tablet
1 mg PO QID
lacosamide 200 mg tablet
200 mg PO BID
Sympazan 5 mg film
5 mg PO BID
acetaminophen 325 mg Tablet
650 mg PO Q4H PRN (Reason: mild pain/fever)
Triple Antibiotic 3.5mg-400 unit- 5,000 unit/gram Ointment
1 applic TOPICAL DIRECTED PRN (Reason: infection prevention)
Rx Instructions:
apply topically to cuts and abrasions as needed to prevent infection.
amlodipine 5 mg Tablet
5 mg PO DAILY
magnesium hydroxide [Milk of Magnesia] 400 mg/5 mL Suspension
30 ml PO DAILYPRN PRN (Reason: constipation)
ziprasidone HCl 40 mg Capsule
40 mg PO QPM
diazepam 10 mg Tablet
10 mg PO DIRECTED
diazepam 10 mg Tablet
10 mg PO DIRECTED
sunscreen Lotion
1 ea TOPICAL DIRECTED PRN (Reason: sun exposure)
Rx Instructions:
apply to all exposed skin as needed prior to sun exposure for sun protection.
Artificial Tears(pvalch-povid) 0.5-0.6 % Drops
1 drp BOTH EYES Q4HPRN PRN (Reason: dry eye)
cholecalciferol (vitamin D3) 50 mcg (2,000 unit) Tablet
50 mcg PO DAILY
zinc oxide [Diaper Rash] 40 % Ointment
1 applic TOPICAL Q2H
eucalyp-m yzfdmrr-kuurt-hesdko Mouthwash
1 ea MUCOUS MEMBRANE DAILY
Nayzilam 5 mg/spray (0.1 mL) [place],Non-Aerosol
1 spray INTRANASAL DIRECTED PRN (Reason: breakthrough seizure)
Rx Instructions:
administer 1 spray into one nostril as needed for breakthrough seizure; can repeat after 10 min in opposite nostril if seizure continues.
amoxicillin 250 mg/5 mL Suspension For Reconstitution
500 mg PO TID Qty: 200 0RF
hydrochlorothiazide 25 mg Tablet
25 mg PO DAILY Qty: 30 0RF
Referrals:
Ar Weir DO [Family Provider, Internal Medicine]
Activity Restrictions/Additional Instructions:
Patient was found to have influenza A here in the ER.
Patient was given 75 mg of Tamiflu here in the ER and a prescription was sent to the pharmacy for 30 mg twice daily for the next 4 days.
Be sure the patient stays well-hydrated, Tylenol as needed for fevers. Patient should be evaluated by primary care physician in the next several days.
return if any worsening of symptoms.
Interventions
Interventions:
*Risk Screen - Suicide Last Done: 05/22/25 13:26
*General Assessment Last Done: 05/22/25 13:26
*Neglect/Abuse Screening Last Done: 05/22/25 13:26
*ED- Fall Risk Assessment Last Done: 05/22/25 15:01
*ED COVID-19 Vaccine History Last Done: 05/22/25 15:01
Discharge Date and Time
Print Language: BOLIVIAN
[2025-05-22 17:06] VITALS: BP 121/81
[2025-05-22 17:12] LABS: Urine Character Clear (Clear)
[2025-05-22 17:24] LABS: Urine Squamous Cell 0-2 /LPF (Few)
[2025-05-22 17:25] LABS: Urine Red Blood Cell 0-2 /HPF (0-2)
[2025-05-22 17:33] LABS: COVID-19 Antigen Negative (Negative)
[2025-05-22 18:00] VITALS: BP 106/82
[2025-05-22] MEDS: TAMIFLU 75 MG PO (18:38)
[2025-05-22] MEDS: TAMIFLU 30 MG PO (18:54)
== END 2025-05-22 18:58 | disposition home or self-care (01) ==
LOC: EMR 13:14
PROVIDERS: Emergency Medicine; Nurse Practitioner; EMERGENCY PHYSICIAN Emergency Medicine; FAMILY PHYSICIAN Internal Medicine
DX: J10.1 Influenza due to other identified influenza virus with other respiratory manifestations (principal); F84.0 Autistic disorder; I12.9 Hypertensive chronic kidney disease with stage 1 through stage 4 chronic kidney disease, or unspecified chronic kidney disease; E11.22 Type 2 diabetes mellitus with diabetic chronic kidney disease; N18.32 Chronic kidney disease, stage 3b; F88 Other disorders of psychological development; F31.9 Bipolar disorder, unspecified; E03.9 Hypothyroidism, unspecified
CPT/HCPCS: 99283; 71046; 80053; 81003; 81015; 85025; 87077; 87086; 87186; 87502; 87811

== ENCOUNTER → 2025-08-21 07:36 | Emergency (ER) | payer MEDICARE, MEDICAID, SELFPAY ==
--- NOTE | 2025-08-21 08:00 | ED.GENMED ---
History of Present Illness
General
Chief Complaint: Urinary Symptoms
Source: urgent care
Exam Limitations: clinical condition
Time Seen by Provider: 08/21/25 07:41
History of Present Illness
History of Present Illness:
64-year-old male with an indwelling Rader presents with hematuria. Apparently was been going on for a few days. History of the same in the past. Apparently was recently admitted for this recently although we are having difficulty finding the
records. Patient is unable to add history. He is at his baseline per the caregiver. Does not appear to be in any pain no vomiting no fever or chills.
Past History
Past History
ED Past Medical History: HTN, NIDDM, Seizures, Hypothyroidism, Psychiatric (bipolar.) and Other (Ataxia, Explusive disorder, Autism. Dysphasa,)
ED Past Surgical History: Other
Patient has exhibited threatening behavior?: No
PSI?: No
Social History
Tobacco: Non-smoker
Alcohol: None
Drug: None
Personal: Single
Living: assisted living ([facility] home with carge givers)
Employment: Not employed
Family History
Family History: Other (Reviewed and non-contributory)
Phy Exam
Physical Exam
Physical Exam:
GENERAL: Alert. Will speak but not always understandable. In no distress. Chronically ill-appearing. Significant neurologic delay.
EYE: Orbits normal.
NECK: Supple
CARDIAC: Regular rate and rhythm without any obvious murmurs.
LUNGS: Clear breath sounds,normal
ABDOMEN: Soft, without focal tenderness or distention
: Rader in place. Small amount of blood in the catheter bag.
NEUROLOGICAL: Alert. Mentally delayed
SKIN: Warm and dry, no rash or lesion, no discoloration, skin intact.
MUSCULOSKELETAL: No edema,no deformity.Good color
Course
Orders/Labs/Results
Orders:
Orders
08/21/25 07:58
CBI- Treatment PRN
Solution: nss
08/21/25 08:17
Midazolam HCl [Versed] 2 mg IM NOW STA
08/21/25 08:53
BMP [Basic Metabolic Panel] Urgent
CBC/With Diff [Complete Blood Count/With Diff] Urgent
Abnormal Lab Results
08/21/25
08:53
WBC 11.7 H 10^3/uL
(4.8-10.8)
RBC 3.25 L 10^6/uL
(4.70-6.10)
Hgb 9.3 L g/dL
(13.0-18.0)
Hct 30.1 L %
(39.0-52.0)
MCHC 30.9 L g/dL
(33.0-37.0)
Abs Immat Gran (auto) 0.1 H 10^3/uL
(0-0.05)
Absolute Neuts (auto) 8.7 H 10^3/uL
(1.4-6.5)
Absolute Lymphs (auto) 1.0 L 10^3/uL
(1.2-3.4)
Absolute Monos (auto) 1.7 H 10^3/uL
(0.1-0.6)
Immature Gran % 0.7 H %
(0-0.5)
Lymphocytes % 8.8 L %
(20.5-51.1)
Monocytes % 14.3 H %
(1.7-9.3)
08/21/25 08:53
08/21/25 08:53
Vital Signs
Initial and Last Documented VS:
Initial Vital Signs
Pulse Ox
100
08/21/25 08:02
Last Documented Vital Signs
Pulse Ox
100
08/21/25 08:02
MDM/Problems Addressed
Differential Diagnosis Includes:
We are trying to find the records from the recent admission which apparently was for same. Patient is nontoxic. Will irrigate the catheter. Try to find these records. Check routine labs for white count hemoglobin and renal insufficiency.
*Pulse Oximetry
SaO2: 100
Oxygen Mode of Delivery: Room air
Patient hypoxic: no (100)
*Critical Care Note
Total Time (30-74mins, 75-104mins- exclusive of procedures): Not Applicable
Update Note
Update Note:
Patient was leaking around the catheter when CBI was started. Elected to remove the catheter and replace. Unable to replace a 22 [place] three-way. Still attempting to get records from last week. Will talk to urology
ED Attending Note
-
Portions of this chart may have been created with voice recognition software.� Occasional wrong word or��sound alike� substitutions may have occurred due to the inherent limitations of voice recognition software.
Discharge Plan
Departure
Prescriptions:
No Action
loperamide 2 MG capsule
2 mg PO UD MDD 16 mg PRN (Reason: diarrhea)
Rx Instructions:
2 caps after 1 loose bm, then 1 cap after each loose bm
ammonium lactate 12 % lotion
1 applic TOPICAL DAILY
guaifenesin 100 mg/5 mL Liquid
200 mg PO Q4H MDD 40 ml PRN (Reason: cough)
ziprasidone HCl 20 mg capsule
20 mg PO DAILY
lorazepam 1 mg tablet
1 mg PO QID
lacosamide 200 mg tablet
200 mg PO BID
Sympazan 5 mg film
5 mg PO BID
acetaminophen 325 mg Tablet
650 mg PO Q4H PRN (Reason: mild pain/fever)
Triple Antibiotic 3.5mg-400 unit- 5,000 unit/gram Ointment
1 applic TOPICAL DIRECTED PRN (Reason: infection prevention)
Rx Instructions:
apply topically to cuts and abrasions as needed to prevent infection.
amlodipine 5 mg Tablet
5 mg PO DAILY
magnesium hydroxide [Milk of Magnesia] 400 mg/5 mL Suspension
30 ml PO DAILYPRN PRN (Reason: constipation)
ziprasidone HCl 40 mg Capsule
40 mg PO QPM
diazepam 10 mg Tablet
10 mg PO DIRECTED
diazepam 10 mg Tablet
10 mg PO DIRECTED
sunscreen Lotion
1 ea TOPICAL DIRECTED PRN (Reason: sun exposure)
Rx Instructions:
apply to all exposed skin as needed prior to sun exposure for sun protection.
Artificial Tears(pvalch-povid) 0.5-0.6 % Drops
1 drp BOTH EYES Q4HPRN PRN (Reason: dry eye)
cholecalciferol (vitamin D3) 50 mcg (2,000 unit) Tablet
50 mcg PO DAILY
zinc oxide [Diaper Rash] 40 % Ointment
1 applic TOPICAL Q2H
eucalyp-m tjdzxtp-pdypj-eohntj Mouthwash
1 ea MUCOUS MEMBRANE DAILY
Nayzilam 5 mg/spray (0.1 mL) [place],Non-Aerosol
1 spray INTRANASAL DIRECTED PRN (Reason: breakthrough seizure)
Rx Instructions:
administer 1 spray into one nostril as needed for breakthrough seizure; can repeat after 10 min in opposite nostril if seizure continues.
amoxicillin 250 mg/5 mL Suspension For Reconstitution
500 mg PO TID Qty: 200 0RF
hydrochlorothiazide 25 mg Tablet
25 mg PO DAILY Qty: 30 0RF
oseltamivir [Tamiflu] 30 mg capsule
30 mg PO BID 4 Days Qty: 8 0RF
Discharge Date and Time
Print Language: WOLOF
[2025-08-21 08:59] LABS: Hematocrit 30.1 % (39.0-52.0); Hemoglobin 9.3 g/dL (13.0-18.0); Mean Corp Hgb Conc. 30.9 g/dL (33.0-37.0); Mean Corpuscular Volume 92.6 fL (80.0-94.0); Nucleated Red Blood Cells % 0 % (-); Platelet Count 372 10^3/uL (130-400); Red Cell Dist. Width 13.5 % (11.5-14.5)
[2025-08-21 09:28] LABS: Blood Urea Nitrogen 17 mg/dl (9-20); Calcium 9.1 mg/dl (8.4-10.2); Carbon Dioxide 24 mmol/L (22-30); Chloride 105 mmol/L (98-107); Glucose 86 mg/dl (70-99); Potassium 4.1 mmol/L (3.5-5.1); Sodium 136 mmol/L (135-145); eGFR > 60.00
== END ==
LOC: EMR 07:36
PROVIDERS: EMERGENCY PHYSICIAN Emergency Medicine
DX: R31.9 Hematuria, unspecified (principal); I10 Essential (primary) hypertension; E11.9 Type 2 diabetes mellitus without complications; E03.9 Hypothyroidism, unspecified; F31.9 Bipolar disorder, unspecified; F84.0 Autistic disorder
CPT/HCPCS: 99283; 96372; 80048; 85025